=== PATIENT | male | born 1990 | race Caucasian/White ===

== ENCOUNTER → 2018-05-18 11:15 | Outpatient (CLI) | payer OTHER, SELFPAY ==
[2018-05-18 12:14] LABS: TSH w/ Reflex to FT4 5.22 uIU/mL (0.47-4.68)
[2018-05-18 12:55] LABS: Free T4, Direct Thyroxine 1.22 ng/dL (0.78-2.19)
[2018-05-18 12:59] LABS: HIV 1 and 2 Antibody NEGATIVE (NEGATIVE)
[2018-05-21 08:56] LABS: Hepatitis A Antibody IgM NONREACTIVE (NONREACTIVE); Hepatitis Acute Panel Interp 0.01 (NONREACTIVE); Hepatitis B Core Antibody IgM NONREACTIVE (NONREACTIVE); Hepatitis B Surface Antigen NONREACTIVE (NONREACTIVE); Hepatitis C Antibody NONREACTIVE
[2018-05-21 20:10] LABS: HSV 1 IgM Screen Negative (Negative); HSV 2 IgM Screen Negative (Negative)
== END ==
PROVIDERS: PCP Family Medicine; Visit Provider Family Medicine
DX: E05.90 Thyrotoxicosis, unspecified without thyrotoxic crisis or storm (principal); Z11.3 Encounter for screening for infections with a predominantly sexual mode of transmission
CPT/HCPCS: 36415; 80074; 84439; 84443; 86694; 86703

== ENCOUNTER 2021-09-02 00:44 | Emergency (ER) | payer OTHER, MEDICAID, SELFPAY ==
--- NOTE | 2021-09-02 00:52 | DI.RAD.S_ITS ---
PROCEDURE: XR HIP W PEL IF DONE LT 2V INDICATIONS: fall TECHNIQUE: AP pelvis with lateral view(s) of the left hip(s). COMPARISON: None. FINDINGS: Bones: No fractures or dislocations. Pelvic ring appears intact. No suspicious bony lesions. Soft tissues: The visualized bowel gas pattern is normal. No suspicious soft tissue calcifications. IMPRESSION: No acute fracture. No osseous lesion. If symptoms and/or clinical suspicion for pathology persist, further assessment with repeat, or advanced imaging (e.g., CT, MRI, or bone scan) may be helpful for further assessment. Dictated by: Emery Frazier M.D. on 09/02/2021 at 1:11 Approved by: Emery Frazier M.D. on 09/02/2021 at 1:11
[2021-09-02 00:53] VITALS: BP 168/95; PULSE 72; RESP 18; TEMP 36.9; O2SAT 100
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
--- NOTE | 2021-09-02 01:21 | DI.CT.S_ITS ---
PROCEDURE: CT PEL WO CON INDICATIONS: Left hip pain TECHNIQUE: Noncontrast 3 mm axial sections acquired through the bony pelvis, with coronal and sagittal reformatting. COMPARISON: [facility], CR, XR HIP W PEL IF DONE LT 2V, 09/02/2021, 0:43. FINDINGS: Image quality: Excellent. Bones: No fracture or osseous lesion. Soft tissues: Visualized bowel loops and vasculature are normal in caliber. No free fluid. No fluid collections. IMPRESSION: No fracture. Dictated by: Emery Frazier M.D. on 09/02/2021 at 1:45 Approved by: Emery Frazier M.D. on 09/02/2021 at 1:46
[2021-09-02] MEDS: KETOROLAC 30 MG/ML VIAL IM (01:28)
[2021-09-02 02:04] VITALS: BP 154/91; PULSE 68; RESP 18; O2SAT 100
== END 2021-09-02 02:08 | disposition home or self-care (01) ==
PROVIDERS: Emergency Provider Emergency Medicine; PCP Family Medicine
DX: S70.02XA Contusion of left hip, initial encounter (principal); F17.200 Nicotine dependence, unspecified, uncomplicated; Y04.8XXA Assault by other bodily force, initial encounter
CPT/HCPCS: 72192; 73502; 96372; 99283; 99284; J1885

== ENCOUNTER 2023-07-02 12:57 | Emergency (ER) | payer OTHER, MEDICAID, SELFPAY ==
[2023-07-02] VITALS (45 sets, daily range): BP systolic 147–174; BP diastolic 75–108; PULSE 76–90; RESP 12–34; TEMP 36.4; O2SAT 95–100; BMI 37.4
--- NOTE | 2023-07-02 13:09 | ED_ITS ---
HPI - Fall <Mateo Hernandez MD - Last Filed: 07/12/23 10:23> General Chief Complaint: Trauma Stated Complaint: fall 5 days ago/weak knees Time Seen by Provider: 07/02/23 13:05 History of Present Illness HPI Narrative: Patient brought in by ambulance from home. Ground level fall 5 days ago while taking a shower he lost his balance and hit the edge of the shower with his head and lower back. Has had nausea and vomiting since then. Did have loss of consciousness. Patient is not on any blood thinners. Patient has felt very weak since then. Blood sugar 90. Today his legs were very weak and he fell again. No new injury. Patient is awake alert oriented x4. Moving all 4 extremities. Denies any limb injury. Related Data Home Medications Medication Instructions Recorded Confirmed No Known Home Medications 07/02/23 07/02/23 Allergies Allergy/AdvReac Type Severity Reaction Status Date / Time No Known Drug Allergies Allergy Verified 07/02/23 15:47 Review of Systems <Mateo Hernandez MD - Last Filed: 07/12/23 10:23> Review of Systems Narrative: GENERAL: negative chills, positive fatigue, malaise, negative fever, sweats. HEENT: negative sinus pain, ear pain, sore throat RESPIRATORY: negative dyspnea, cough CARDIOVASCULAR: negative chest pain, palpitations GASTROINTESTINAL: Positive nausea, vomiting, negative abdominal pain : negative dysuria, frequency, hematuria MUSCULOSKELETAL: Positive muscle or bony pain SKIN: negative rash, skin lesions NEUROLOGIC: negative weakness, numbness ROS Unobtainable: All systems reviewed & are unremarkable except as noted in HPI and below Patient History <Mateo Hernandez MD - Last Filed: 07/12/23 10:23> Family History Mother Rheumatoid arthritis Social History Smoking Status: Current every day smoker Smoking Status: Current every day smoker Exam <Mateo Hernandez MD - Last Filed: 07/12/23 10:23> Narrative Exam Narrative: GENERAL: in no distress, not toxic not dyspneic HEAD: Normocephalic. Atraumatic. Nontender scalp and skull. EYES: Pupils equal round ENT: Mucous membranes moist. NECK: Trachea midline. No midline tenderness or step-off the cervical thoracic or lumbar spine. CARDIOVASCULAR: Regular rate and rhythm RESPIRATORY: Clear to auscultation. Breath sounds equal bilaterally. No wheezes, rales, or rhonchi. GASTROINTESTINAL: Abdomen soft, non-tender EXTREMITIES: No gross deformities. Nontender bilateral shoulders elbows wrists pelvis hips knees and ankles BACK: No flank tenderness. NEURO: AOx4. 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 Patient able to move himself from EMS bed to his bed without assistance or difficulty SKIN: Warm and dry PSYCH: Not anxious, is cooperative Initial Vital Signs Initial Vital Signs: Vital Signs Pulse Rate 86 07/02/23 13:00 Pulse Oximetry 98 07/02/23 13:00 <Roseanna Robb MD - Last Filed: 07/03/23 05:24> Initial Vital Signs Initial Vital Signs: Vital Signs Pulse Rate 86 07/02/23 13:00 Pulse Oximetry 98 07/02/23 13:00 Course <Mateo Hernandez MD - Last Filed: 07/12/23 10:23> Orders Ordered: Discontinued Medications Calcium Carbonate (Calcium Carbonate 500 Mg Tab) 1,000 mg PO Q6HR CHRIS Last Admin: 07/03/23 00:16 Dose: 1,000 mg Documented By: Admin: 07/02/23 21:37 Dose: 1,000 mg Documented By: RISHABH Dextrose (Dextrose 50 % In Water 25 Gm/50 Ml Syringe) 25 gm IV NOW ONE Stop: 07/02/23 15:18 Last Admin: 07/02/23 15:26 Dose: 25 gm Documented By: MARY Dextrose (Dextrose 50 % In Water 25 Gm/50 Ml Syringe) 25 gm IV NOW ONE Stop: 07/03/23 02:08 Last Admin: 07/03/23 02:22 Dose: 25 gm Documented By: JEB Dextrose (Dextrose 50 % In Water 25 Gm/50 Ml Syringe) 25 gm IV NOW ONE Stop: 07/03/23 04:10 Last Admin: 07/03/23 04:13 Dose: 25 gm Documented By: JEB Sodium Chloride (Normal Saline 0.9%) 1,000 mls @ 1,000 mls/hr IV BOLUS ONE Stop: 07/02/23 14:05 Last Infusion: 07/02/23 14:54 Dose: Infused Documented By: Admin: 07/02/23 13:35 Dose: 1,000 mls/hr Documented By: KARTHIKEYAN Sodium Chloride (Normal Saline 0.9%) 1,000 mls @ 1,000 mls/hr IV BOLUS ONE Stop: 07/02/23 14:59 Last Infusion: 07/02/23 15:32 Dose: Infused Documented By: Admin: 07/02/23 14:26 Dose: 1,000 mls/hr Documented By: MARY Calcium Gluconate 4.65 meq/ (Sodium Chloride) 60 mls @ 180 mls/hr IV NOW ONE Stop: 07/02/23 14:21 Last Infusion: 07/02/23 14:54 Dose: Infused Documented By: Admin: 07/02/23 14:25 Dose: 180 mls/hr Documented By: MARY Sodium Chloride (Normal Saline 0.9%) 1,000 mls @ 125 mls/hr IV CONT CHRIS Last Infusion: 07/02/23 21:26 Dose: Infused Documented By: Infusion: 07/02/23 19:23 Dose: 75 mls/hr Documented By: Admin: 07/02/23 15:28 Dose: 125 mls/hr Documented By: MARY Calcium Gluconate 9.3 meq/ (Sodium Chloride) 70 mls @ 140 mls/hr IV NOW ONE Stop: 07/02/23 20:38 Last Admin: 07/02/23 21:01 Dose: Not Given Documented By: CAROLINA Calcium Gluconate 4.65 meq/ (Sodium Chloride) 60 mls @ 180 mls/hr IV NOW ONE Stop: 07/02/23 21:20 Last Admin: 07/02/23 21:09 Dose: Not Given Documented By: CAROLINA Calcium Gluconate 9.3 meq/ (Sodium Chloride) 120 mls @ 140 mls/hr IV NOW ONE Stop: 07/02/23 21:53 Last Infusion: 07/02/23 22:40 Dose: Infused Documented By: Admin: 07/02/23 21:10 Dose: 140 mls/hr Documented By: RISHABH Sodium Chloride (Normal Saline 0.9%) 1,000 mls @ 125 mls/hr IV CONT CHRIS Last Admin: 07/03/23 02:22 Dose: 125 mls/hr Documented By: JEB Calcium Gluconate 4.65 meq/ (Sodium Chloride) 60 mls @ 180 mls/hr IV NOW ONE Stop: 07/03/23 02:26 Last Infusion: 07/03/23 02:46 Dose: Infused Documented By: Admin: 07/03/23 02:22 Dose: 180 mls/hr Documented By: JEB Insulin Human Regular (Insulin Regular 100 Unit/Ml 3 Ml Vial) 5 unit IV NOW ONE Stop: 07/02/23 15:18 Last Admin: 07/02/23 15:26 Dose: 5 unit Documented By: MARY Co-signed By: RAIMUNDO Insulin Human Regular (Insulin Regular 100 Unit/Ml 3 Ml Vial) 10 unit IV NOW ONE Stop: 07/03/23 02:08 Last Admin: 07/03/23 02:20 Dose: 10 unit Documented By: JEB Co-signed By: CLARICE Lidocaine HCl (Lidocaine 2% (Glydo) 6 Ml Gel) 6 ml TOP NOW ONE Stop: 07/02/23 14:03 Last Admin: 07/02/23 14:31 Dose: 6 ml Documented By: MARY Lorazepam (Lorazepam 0.5 Mg Tablet) 1 mg PO NOW ONE Stop: 07/02/23 21:15 Last Admin: 07/02/23 21:29 Dose: 1 mg Documented By: RISHABH Morphine Sulfate (Morphine 4 Mg/Ml Inj) 4 mg IV NOW ONE Stop: 07/02/23 17:07 Last Admin: 07/02/23 17:21 Dose: 4 mg Documented By: MARY Ondansetron HCl (Ondansetron 4 Mg/2 Ml Inj) 4 mg IV NOW ONE Stop: 07/02/23 13:07 Last Admin: 07/02/23 13:18 Dose: 4 mg Documented By: KARTHIKEYAN Vital Signs Vital signs: Vital Signs - 8 hr 07/02/23 21:30 07/02/23 21:30 07/02/23 21:43 Temperature Pulse Rate 80 Respiratory Rate 25 H Blood Pressure 152/81 H 157/97 H Pulse Oximetry 99 Oxygen Delivery Method 07/02/23 21:43 07/02/23 22:00 07/02/23 22:30 Temperature Pulse Rate 82 77 79 Respiratory Rate 24 26 H Blood Pressure Pulse Oximetry 98 99 97 Oxygen Delivery Method 07/02/23 23:00 07/02/23 23:30 07/03/23 00:00 Temperature Pulse Rate 80 78 79 Respiratory Rate 23 21 17 Blood Pressure Pulse Oximetry 95 96 97 Oxygen Delivery Method 07/03/23 00:30 07/03/23 01:00 07/03/23 01:25 Temperature Pulse Rate 78 80 79 Respiratory Rate 22 21 21 Blood Pressure Pulse Oximetry 91 90 L 97 Oxygen Delivery Method 07/03/23 01:25 07/03/23 01:30 07/03/23 01:30 Temperature Pulse Rate 83 Respiratory Rate 24 Blood Pressure 133/83 127/63 Pulse Oximetry 96 Oxygen Delivery Method 07/03/23 02:00 07/03/23 02:00 07/03/23 02:30 Temperature 97.7 F Pulse Rate 79 80 Respiratory Rate 24 24 Blood Pressure 134/73 Pulse Oximetry 96 94 Oxygen Delivery Method Room Air Room Air 07/03/23 02:30 07/03/23 03:00 07/03/23 03:00 Temperature Pulse Rate 80 Respiratory Rate 21 Blood Pressure 142/70 H 140/73 Pulse Oximetry 96 Oxygen Delivery Method 07/03/23 03:30 07/03/23 03:30 07/03/23 04:00 Temperature Pulse Rate 80 Respiratory Rate 24 Blood Pressure 148/77 H 152/77 H Pulse Oximetry 97 Oxygen Delivery Method 07/03/23 04:00 07/03/23 04:30 07/03/23 04:30 Temperature Pulse Rate 87 75 Respiratory Rate 25 H 21 Blood Pressure 152/77 H Pulse Oximetry 96 96 Oxygen Delivery Method 07/03/23 05:00 Temperature Pulse Rate 82 Respiratory Rate 21 Blood Pressure Pulse Oximetry 96 Oxygen Delivery Method <Roseanna Robb MD - Last Filed: 07/03/23 05:24> Orders Ordered: Discontinued Medications Calcium Carbonate (Calcium Carbonate 500 Mg Tab) 1,000 mg PO Q6HR CHRIS Last Admin: 07/03/23 00:16 Dose: 1,000 mg Documented By: Admin: 07/02/23 21:37 Dose: 1,000 mg Documented By: RISHABH Dextrose (Dextrose 50 % In Water 25 Gm/50 Ml Syringe) 25 gm IV NOW ONE Stop: 07/02/23 15:18 Last Admin: 07/02/23 15:26 Dose: 25 gm Documented By: MARY Dextrose (Dextrose 50 % In Water 25 Gm/50 Ml Syringe) 25 gm IV NOW ONE Stop: 07/03/23 02:08 Last Admin: 07/03/23 02:22 Dose: 25 gm Documented By: JEB Dextrose (Dextrose 50 % In Water 25 Gm/50 Ml Syringe) 25 gm IV NOW ONE Stop: 07/03/23 04:10 Last Admin: 07/03/23 04:13 Dose: 25 gm Documented By: JEB Sodium Chloride (Normal Saline 0.9%) 1,000 mls @ 1,000 mls/hr IV BOLUS ONE Stop: 07/02/23 14:05 Last Infusion: 07/02/23 14:54 Dose: Infused Documented By: Admin: 07/02/23 13:35 Dose: 1,000 mls/hr Documented By: KARTHIKEYAN Sodium Chloride (Normal Saline 0.9%) 1,000 mls @ 1,000 mls/hr IV BOLUS ONE Stop: 07/02/23 14:59 Last Infusion: 07/02/23 15:32 Dose: Infused Documented By: Admin: 07/02/23 14:26 Dose: 1,000 mls/hr Documented By: MARY Calcium Gluconate 4.65 meq/ (Sodium Chloride) 60 mls @ 180 mls/hr IV NOW ONE Stop: 07/02/23 14:21 Last Infusion: 07/02/23 14:54 Dose: Infused Documented By: Admin: 07/02/23 14:25 Dose: 180 mls/hr Documented By: MARY Sodium Chloride (Normal Saline 0.9%) 1,000 mls @ 125 mls/hr IV CONT CHRIS Last Infusion: 07/02/23 21:26 Dose: Infused Documented By: Infusion: 07/02/23 19:23 Dose: 75 mls/hr Documented By: Admin: 07/02/23 15:28 Dose: 125 mls/hr Documented By: MARY Calcium Gluconate 9.3 meq/ (Sodium Chloride) 70 mls @ 140 mls/hr IV NOW ONE Stop: 07/02/23 20:38 Last Admin: 07/02/23 21:01 Dose: Not Given Documented By: CAROLINA Calcium Gluconate 4.65 meq/ (Sodium Chloride) 60 mls @ 180 mls/hr IV NOW ONE Stop: 07/02/23 21:20 Last Admin: 07/02/23 21:09 Dose: Not Given Documented By: CAROLINA Calcium Gluconate 9.3 meq/ (Sodium Chloride) 120 mls @ 140 mls/hr IV NOW ONE Stop: 07/02/23 21:53 Last Infusion: 07/02/23 22:40 Dose: Infused Documented By: Admin: 07/02/23 21:10 Dose: 140 mls/hr Documented By: RISHABH Sodium Chloride (Normal Saline 0.9%) 1,000 mls @ 125 mls/hr IV CONT CHRIS Last Admin: 07/03/23 02:22 Dose: 125 mls/hr Documented By: JEB Calcium Gluconate 4.65 meq/ (Sodium Chloride) 60 mls @ 180 mls/hr IV NOW ONE Stop: 07/03/23 02:26 Last Infusion: 07/03/23 02:46 Dose: Infused Documented By: Admin: 07/03/23 02:22 Dose: 180 mls/hr Documented By: JEB Insulin Human Regular (Insulin Regular 100 Unit/Ml 3 Ml Vial) 5 unit IV NOW ONE Stop: 07/02/23 15:18 Last Admin: 07/02/23 15:26 Dose: 5 unit Documented By: MARY Co-signed By: RAIMUNDO Insulin Human Regular (Insulin Regular 100 Unit/Ml 3 Ml Vial) 10 unit IV NOW ONE Stop: 07/03/23 02:08 Last Admin: 07/03/23 02:20 Dose: 10 unit Documented By: JEB Co-signed By: CLARICE Lidocaine HCl (Lidocaine 2% (Glydo) 6 Ml Gel) 6 ml TOP NOW ONE Stop: 07/02/23 14:03 Last Admin: 07/02/23 14:31 Dose: 6 ml Documented By: MARY Lorazepam (Lorazepam 0.5 Mg Tablet) 1 mg PO NOW ONE Stop: 07/02/23 21:15 Last Admin: 07/02/23 21:29 Dose: 1 mg Documented By: RISHABH Morphine Sulfate (Morphine 4 Mg/Ml Inj) 4 mg IV NOW ONE Stop: 07/02/23 17:07 Last Admin: 07/02/23 17:21 Dose: 4 mg Documented By: MARY Ondansetron HCl (Ondansetron 4 Mg/2 Ml Inj) 4 mg IV NOW ONE Stop: 07/02/23 13:07 Last Admin: 07/02/23 13:18 Dose: 4 mg Documented By: KARTHIKEYAN Vital Signs Vital signs: Vital Signs - 8 hr 07/02/23 21:30 07/02/23 21:30 07/02/23 21:43 Temperature Pulse Rate 80 Respiratory Rate 25 H Blood Pressure 152/81 H 157/97 H Pulse Oximetry 99 Oxygen Delivery Method 07/02/23 21:43 07/02/23 22:00 07/02/23 22:30 Temperature Pulse Rate 82 77 79 Respiratory Rate 24 26 H Blood Pressure Pulse Oximetry 98 99 97 Oxygen Delivery Method 07/02/23 23:00 07/02/23 23:30 07/03/23 00:00 Temperature Pulse Rate 80 78 79 Respiratory Rate 23 21 17 Blood Pressure Pulse Oximetry 95 96 97 Oxygen Delivery Method 07/03/23 00:30 07/03/23 01:00 07/03/23 01:25 Temperature Pulse Rate 78 80 79 Respiratory Rate 22 21 21 Blood Pressure Pulse Oximetry 91 90 L 97 Oxygen Delivery Method 07/03/23 01:25 07/03/23 01:30 07/03/23 01:30 Temperature Pulse Rate 83 Respiratory Rate 24 Blood Pressure 133/83 127/63 Pulse Oximetry 96 Oxygen Delivery Method 07/03/23 02:00 07/03/23 02:00 07/03/23 02:30 Temperature 97.7 F Pulse Rate 79 80 Respiratory Rate 24 24 Blood Pressure 134/73 Pulse Oximetry 96 94 Oxygen Delivery Method Room Air Room Air 07/03/23 02:30 07/03/23 03:00 07/03/23 03:00 Temperature Pulse Rate 80 Respiratory Rate 21 Blood Pressure 142/70 H 140/73 Pulse Oximetry 96 Oxygen Delivery Method 07/03/23 03:30 07/03/23 03:30 07/03/23 04:00 Temperature Pulse Rate 80 Respiratory Rate 24 Blood Pressure 148/77 H 152/77 H Pulse Oximetry 97 Oxygen Delivery Method 07/03/23 04:00 07/03/23 04:30 07/03/23 04:30 Temperature Pulse Rate 87 75 Respiratory Rate 25 H 21 Blood Pressure 152/77 H Pulse Oximetry 96 96 Oxygen Delivery Method 07/03/23 05:00 Temperature Pulse Rate 82 Respiratory Rate 21 Blood Pressure Pulse Oximetry 96 Oxygen Delivery Method MDM - Fall <Mateo Hernandez MD - Last Filed: 07/12/23 10:23> Lab Data 07/02/23 13:16 07/03/23 04:05 Labs: Lab Results 07/02/23 07/02/23 07/02/23 Range/Units 13:16 13:55 14:50 WBC 9.3 (4.5-11.0) X10^3/uL RBC 4.30 L (4.5-5.9) X10^6/uL Hgb 13.4 L (13.5-17.5) g/dL Hct 37.6 L (41-53) % MCV 87.5 (80-100) fL MCH 31.1 (26-34) PG MCHC 35.6 (30-36) % RDW 13.0 (11.6-14.8) % Plt Count 241 (150-400) X10^3/uL Neut % (Auto) 86.3 H (50-75) % Lymph % (Auto) 5.1 L (25-40) % [place] % (Auto) 8.0 (3-14) % Eos % (Auto) 0.2 L (2-4) % Baso % (Auto) 0.4 (0-2) % Neut # (Auto) 8000 H (4942-0944) /uL Lymph # (Auto) 500 L (0500-3928) /uL [place] # (Auto) 700 (0-900) /uL Eos # (Auto) 0 (0-450) /uL Baso # (Auto) 0 (0-100) /uL ABG Sample Site ABG pH (7.35-7.45) ABG pCO2 (35-45) mmHg ABG pO2 (80-100) mmHg ABG HCO3 (23-27) mmol/L ABG Total CO2 (23-27) mmol/L ABG O2 Saturation (95-100) % ABG Base Excess (-2-3) mmol/L FiO2 Sodium 106 L* (137-145) mmol/L Potassium 7.4 H* (3.4-5.1) mmol/L Chloride 68 L* (98-107) mmol/L Carbon Dioxide 14 L (22-32) mmol/L BUN 152 H* (9-20) mg/dL Creatinine 19.29 H* (0.66-1.25) mg/dL Estimated GFR 3 L (>60) mL/min BUN/Creatinine Ratio 7.9 (6-22) Glucose 84 (70-100) mg/dL Calcium 4.8 L* (8.4-10.2) mg/dL Phosphorus (2.5-4.5) mg/dL Magnesium (1.6-2.3) mg/dL Total Bilirubin 0.7 (0.2-1.3) mg/dL AST 372 H (17-59) IU/L ALT 440 H (<50) IU/L Alkaline Phosphatase 47 (38-126) U/L Total Creatine Kinase 066467 H (55-170) U/L NT-Pro-B Natriuret Pep Total Protein 6.7 (6.3-8.2) g/dL Albumin 4.0 (3.5-5.0) g/dL Globulin 2.7 (1.7-4.1) g/dL Albumin/Globulin Ratio 1.5 (1.0-2.8) Lipase 365 H (23-300) U/L TSH (0.47-4.68) uIU/mL Urine Color Yellow Urine Appearance Cloudy Urine pH 5.5 (4.5-8.0) Ur Specific Randle 1.025 (1.000-1.035) Urine Protein 3+ H (Negative) Urine Glucose (UA) Trace H (Negative) g/dL Urine Ketones Trace H (NEGATIVE) Urine Occult Blood 3+ H (Negative) Urine Nitrate Negative (Negative) Urine Bilirubin 1+ H (NEGATIVE) Ur Bilirubin Confirm Cancelled Urine Urobilinogen 0.2 (0.2) E.U./dL Ur Leukocyte Esterase Negative (NEGATIVE) Urine RBC 1-5/hpf (0-5/HPF) Urine WBC 1-5/hpf (0-5/HPF) Ur Squamous Epith Cells None seen (0-5/HPF) Ur Renal Epithelial Cell >20/hpf H (0-1/HPF) Urine Bacteria None seen (None) Ur Culture Indicated? Cult not indicated Micro UA Comment Salicylates < 1.0 (<20) mg/dL U Opiates 300ng/mL cut Negative (Negative) Ur Oxycodone Screen Negative (Negative) Urine Methadone Screen Negative (Negative) Acetaminophen < 10 (10-30) ug/mL Ur Barbiturates Screen Negative (Negative) U Tricyclic Antidepress Negative (Negative) Ur Phencyclidine Scrn Negative (Negative) Ur Amphetamines Screen Negative (Negative) U Methamphetamines Scrn Negative (Negative) Ur MDMA Scrn (Ecstasy) Negative (Negative) U Benzodiazepines Scrn Negative (Negative) Urine Cocaine Screen Negative (Negative) U Marijuana (THC) Screen Negative (Negative) Urine Specific Randle (Normal) Ethyl Alcohol < 10 ( - 10) mg/dL Ur Creatinine (Normal) Chlamy pneumoniae PCR Not detected (Not Detect) Adenovirus (PCR) Not detected (Not Detect) B.parapertussis DNA PCR Not detected (Not Detecte) Coronavirus OC43 (PCR) Not detected (Not Detect) Coronavirus HKU1 (PCR) Not detected (Not Detect) Coronavirus 229E (PCR) Not detected (Not Detect) SARS-CoV-2 (PCR) Not detected (Not Detecte) Coronavirus NL63 (PCR) Not detected (Not Detect) Human Metapneumovir PCR Not detected (Not Detect) Influenza Type A (PCR) Not detected (Not Detect) Influenza Type B (PCR) Not detected (Not Detect) M. pneumoniae (PCR) Not detected (Not Detect) Parainfluenza 1 (PCR) Not detected (Not Detect) Parainfluenza 2 (PCR) Not detected (Not Detect) Parainfluenza 3 (PCR) Not detected (Not Detect) Parainfluenza 4 (PCR) Not detected (Not Detect) RSV (PCR) Not detected (Not Detect) Entero/Rhino (PCR) Not detected (Not Detect) 07/02/23 07/02/23 07/02/23 Range/Units 14:50 16:15 19:20 WBC (4.5-11.0) X10^3/uL RBC (4.5-5.9) X10^6/uL Hgb (13.5-17.5) g/dL Hct (41-53) % MCV (80-100) fL MCH (26-34) PG MCHC (30-36) % RDW (11.6-14.8) % Plt Count (150-400) X10^3/uL Neut % (Auto) (50-75) % Lymph % (Auto) (25-40) % [place] % (Auto) (3-14) % Eos % (Auto) (2-4) % Baso % (Auto) (0-2) % Neut # (Auto) (8029-1220) /uL Lymph # (Auto) (6635-7368) /uL Tr[place]ble # (Auto) (0-900) /uL Eos # (Auto) (0-450) /uL Baso # (Auto) (0-100) /uL ABG Sample Site ABG pH (7.35-7.45) ABG pCO2 (35-45) mmHg ABG pO2 (80-100) mmHg ABG HCO3 (23-27) mmol/L ABG Total CO2 (23-27) mmol/L ABG O2 Saturation (95-100) % ABG Base Excess (-2-3) mmol/L FiO2 Sodium 110 L* 115 L* (137-145) mmol/L Potassium 6.6 H* 5.5 H (3.4-5.1) mmol/L Chloride 74 L* 85 L (98-107) mmol/L Carbon Dioxide 14 L 11 L (22-32) mmol/L BUN 151 H* 133 H* (9-20) mg/dL Creatinine 18.85 H* 15.65 H* (0.66-1.25) mg/dL Estimated GFR 3 L 4 L (>60) mL/min BUN/Creatinine Ratio 8.0 8.5 (6-22) Glucose 72 69 L (70-100) mg/dL Calcium 4.9 L* 3.8 L* (8.4-10.2) mg/dL Phosphorus 11.2 H* (2.5-4.5) mg/dL Magnesium 2.7 H (1.6-2.3) mg/dL Total Bilirubin 0.6 0.5 (0.2-1.3) mg/dL AST 321 H 238 H (17-59) IU/L ALT 418 H 335 H (<50) IU/L Alkaline Phosphatase 42 35 L (38-126) U/L Total Creatine Kinase (55-170) U/L NT-Pro-B Natriuret Pep Cancelled Total Protein 6.3 5.1 L (6.3-8.2) g/dL Albumin 3.6 2.7 L (3.5-5.0) g/dL Globulin 2.7 2.4 (1.7-4.1) g/dL Albumin/Globulin Ratio 1.3 1.1 (1.0-2.8) Lipase (23-300) U/L TSH 1.94 (0.47-4.68) uIU/mL Urine Color Urine Appearance Urine pH Normal (4.5-8.0) Ur Specific Randle (1.000-1.035) Urine Protein (Negative) Urine Glucose (UA) (Negative) g/dL Urine Ketones (NEGATIVE) Urine Occult Blood (Negative) Urine Nitrate (Negative) Urine Bilirubin (NEGATIVE) Ur Bilirubin Confirm Urine Urobilinogen (0.2) E.U./dL Ur Leukocyte Esterase (NEGATIVE) Urine RBC (0-5/HPF) Urine WBC (0-5/HPF) Ur Squamous Epith Cells (0-5/HPF) Ur Renal Epithelial Cell (0-1/HPF) Urine Bacteria (None) Ur Culture Indicated? Micro UA Comment Salicylates (<20) mg/dL U Opiates 300ng/mL cut (Negative) Ur Oxycodone Screen (Negative) Urine Methadone Screen (Negative) Acetaminophen (10-30) ug/mL Ur Barbiturates Screen (Negative) U Tricyclic Antidepress (Negative) Ur Phencyclidine Scrn (Negative) Ur Amphetamines Screen (Negative) U Methamphetamines Scrn (Negative) Ur MDMA Scrn (Ecstasy) (Negative) U Benzodiazepines Scrn (Negative) Urine Cocaine Screen (Negative) U Marijuana (THC) Screen (Negative) Urine Specific Randle Normal (Normal) Ethyl Alcohol ( - 10) mg/dL Ur Creatinine Normal (Normal) Chlamy pneumoniae PCR (Not Detect) Adenovirus (PCR) (Not Detect) B.parapertussis DNA PCR (Not Detecte) Coronavirus OC43 (PCR) (Not Detect) Coronavirus HKU1 (PCR) (Not Detect) Coronavirus 229E (PCR) (Not Detect) SARS-CoV-2 (PCR) (Not Detecte) Coronavirus NL63 (PCR) (Not Detect) Human Metapneumovir PCR (Not Detect) Influenza Type A (PCR) (Not Detect) Influenza Type B (PCR) (Not Detect) M. pneumoniae (PCR) (Not Detect) Parainfluenza 1 (PCR) (Not Detect) Parainfluenza 2 (PCR) (Not Detect) Parainfluenza 3 (PCR) (Not Detect) Parainfluenza 4 (PCR) (Not Detect) RSV (PCR) (Not Detect) Entero/Rhino (PCR) (Not Detect) 12/31/23 01/01/24 01/01/24 Range/Units 21:18 00:08 03:55 WBC (4.5-11.0) X10^3/uL RBC (4.5-5.9) X10^6/uL Hgb (13.5-17.5) g/dL Hct (41-53) % MCV (80-100) fL MCH (26-34) PG MCHC (30-36) % RDW (11.6-14.8) % Plt Count (150-400) X10^3/uL Neut % (Auto) (50-75) % Lymph % (Auto) (25-40) % [place] % (Auto) (3-14) % Eos % (Auto) (2-4) % Baso % (Auto) (0-2) % Neut # (Auto) (2719-7472) /uL Lymph # (Auto) (1720-6234) /uL [place] # (Auto) (0-900) /uL Eos # (Auto) (0-450) /uL Baso # (Auto) (0-100) /uL ABG Sample Site Left radial ABG pH 7.35 (7.35-7.45) ABG pCO2 24.2 L* (35-45) mmHg ABG pO2 78 L (80-100) mmHg ABG HCO3 13 L (23-27) mmol/L ABG Total CO2 14 L (23-27) mmol/L ABG O2 Saturation 95 (95-100) % ABG Base Excess -12.0 L (-2-3) mmol/L FiO2 21 Sodium Cancelled 109 L* (137-145) mmol/L Potassium Cancelled 6.5 H* (3.4-5.1) mmol/L Chloride Cancelled 74 L* (98-107) mmol/L Carbon Dioxide Cancelled 13 L (22-32) mmol/L BUN Cancelled 149 H* (9-20) mg/dL Creatinine Cancelled 17.79 H* (0.66-1.25) mg/dL Estimated GFR Cancelled 3 L (>60) mL/min BUN/Creatinine Ratio Cancelled 8.4 (6-22) Glucose Cancelled 99 (70-100) mg/dL Calcium Cancelled 5.2 L* (8.4-10.2) mg/dL Phosphorus (2.5-4.5) mg/dL Magnesium (1.6-2.3) mg/dL Total Bilirubin Cancelled 0.6 (0.2-1.3) mg/dL AST Cancelled 232 H (17-59) IU/L ALT Cancelled 371 H (<50) IU/L Alkaline Phosphatase Cancelled 43 (38-126) U/L Total Creatine Kinase (55-170) U/L NT-Pro-B Natriuret Pep Total Protein Cancelled 6.1 L (6.3-8.2) g/dL Albumin Cancelled 3.5 (3.5-5.0) g/dL Globulin Cancelled 2.6 (1.7-4.1) g/dL Albumin/Globulin Ratio Cancelled 1.3 (1.0-2.8) Lipase (23-300) U/L TSH (0.47-4.68) uIU/mL Urine Color Urine Appearance Urine pH (4.5-8.0) Ur Specific Randle (1.000-1.035) Urine Protein (Negative) Urine Glucose (UA) (Negative) g/dL Urine Ketones (NEGATIVE) Urine Occult Blood (Negative) Urine Nitrate (Negative) Urine Bilirubin (NEGATIVE) Ur Bilirubin Confirm Urine Urobilinogen (0.2) E.U./dL Ur Leukocyte Esterase (NEGATIVE) Urine RBC (0-5/HPF) Urine WBC (0-5/HPF) Ur Squamous Epith Cells (0-5/HPF) Ur Renal Epithelial Cell (0-1/HPF) Urine Bacteria (None) Ur Culture Indicated? Micro UA Comment Salicylates (<20) mg/dL U Opiates 300ng/mL cut (Negative) Ur Oxycodone Screen (Negative) Urine Methadone Screen (Negative) Acetaminophen (10-30) ug/mL Ur Barbiturates Screen (Negative) U Tricyclic Antidepress (Negative) Ur Phencyclidine Scrn (Negative) Ur Amphetamines Screen (Negative) U Methamphetamines Scrn (Negative) Ur MDMA Scrn (Ecstasy) (Negative) U Benzodiazepines Scrn (Negative) Urine Cocaine Screen (Negative) U Marijuana (THC) Screen (Negative) Urine Specific Randle (Normal) Ethyl Alcohol ( - 10) mg/dL Ur Creatinine (Normal) Chlamy pneumoniae PCR (Not Detect) Adenovirus (PCR) (Not Detect) B.parapertussis DNA PCR (Not Detecte) Coronavirus OC43 (PCR) (Not Detect) Coronavirus HKU1 (PCR) (Not Detect) Coronavirus 229E (PCR) (Not Detect) SARS-CoV-2 (PCR) (Not Detecte) Coronavirus NL63 (PCR) (Not Detect) Human Metapneumovir PCR (Not Detect) Influenza Type A (PCR) (Not Detect) Influenza Type B (PCR) (Not Detect) M. pneumoniae (PCR) (Not Detect) Parainfluenza 1 (PCR) (Not Detect) Parainfluenza 2 (PCR) (Not Detect) Parainfluenza 3 (PCR) (Not Detect) Parainfluenza 4 (PCR) (Not Detect) RSV (PCR) (Not Detect) Entero/Rhino (PCR) (Not Detect) 07/03/23 Range/Units 04:05 WBC (4.5-11.0) X10^3/uL RBC (4.5-5.9) X10^6/uL Hgb (13.5-17.5) g/dL Hct (41-53) % MCV (80-100) fL MCH (26-34) PG MCHC (30-36) % RDW (11.6-14.8) % Plt Count (150-400) X10^3/uL Neut % (Auto) (50-75) % Lymph % (Auto) (25-40) % [place] % (Auto) (3-14) % Eos % (Auto) (2-4) % Baso % (Auto) (0-2) % Neut # (Auto) (8951-8136) /uL Lymph # (Auto) (5210-2372) /uL [place] # (Auto) (0-900) /uL Eos # (Auto) (0-450) /uL Baso # (Auto) (0-100) /uL ABG Sample Site ABG pH (7.35-7.45) ABG pCO2 (35-45) mmHg ABG pO2 (80-100) mmHg ABG HCO3 (23-27) mmol/L ABG Total CO2 (23-27) mmol/L ABG O2 Saturation (95-100) % ABG Base Excess (-2-3) mmol/L FiO2 Sodium 113 L* (137-145) mmol/L Potassium 5.2 H D (3.4-5.1) mmol/L Chloride 76 L* (98-107) mmol/L Carbon Dioxide 14 L (22-32) mmol/L BUN 152 H* (9-20) mg/dL Creatinine 19.75 H* (0.66-1.25) mg/dL Estimated GFR 3 L (>60) mL/min BUN/Creatinine Ratio 7.7 (6-22) Glucose 45 L* (70-100) mg/dL Calcium 5.9 L* (8.4-10.2) mg/dL Phosphorus (2.5-4.5) mg/dL Magnesium (1.6-2.3) mg/dL Total Bilirubin 0.6 (0.2-1.3) mg/dL AST 206 H (17-59) IU/L ALT 374 H (<50) IU/L Alkaline Phosphatase 47 (38-126) U/L Total Creatine Kinase (55-170) U/L NT-Pro-B Natriuret Pep Total Protein 6.2 L (6.3-8.2) g/dL Albumin 3.6 (3.5-5.0) g/dL Globulin 2.6 (1.7-4.1) g/dL Albumin/Globulin Ratio 1.4 (1.0-2.8) Lipase (23-300) U/L TSH (0.47-4.68) uIU/mL Urine Color Urine Appearance Urine pH (4.5-8.0) Ur Specific Randle (1.000-1.035) Urine Protein (Negative) Urine Glucose (UA) (Negative) g/dL Urine Ketones (NEGATIVE) Urine Occult Blood (Negative) Urine Nitrate (Negative) Urine Bilirubin (NEGATIVE) Ur Bilirubin Confirm Urine Urobilinogen (0.2) E.U./dL Ur Leukocyte Esterase (NEGATIVE) Urine RBC (0-5/HPF) Urine WBC (0-5/HPF) Ur Squamous Epith Cells (0-5/HPF) Ur Renal Epithelial Cell (0-1/HPF) Urine Bacteria (None) Ur Culture Indicated? Micro UA Comment Salicylates (<20) mg/dL U Opiates 300ng/mL cut (Negative) Ur Oxycodone Screen (Negative) Urine Methadone Screen (Negative) Acetaminophen (10-30) ug/mL Ur Barbiturates Screen (Negative) U Tricyclic Antidepress (Negative) Ur Phencyclidine Scrn (Negative) Ur Amphetamines Screen (Negative) U Methamphetamines Scrn (Negative) Ur MDMA Scrn (Ecstasy) (Negative) U Benzodiazepines Scrn (Negative) Urine Cocaine Screen (Negative) U Marijuana (THC) Screen (Negative) Urine Specific Randle (Normal) Ethyl Alcohol ( - 10) mg/dL Ur Creatinine (Normal) Chlamy pneumoniae PCR (Not Detect) Adenovirus (PCR) (Not Detect) B.parapertussis DNA PCR (Not Detecte) Coronavirus OC43 (PCR) (Not Detect) Coronavirus HKU1 (PCR) (Not Detect) Coronavirus 229E (PCR) (Not Detect) SARS-CoV-2 (PCR) (Not Detecte) Coronavirus NL63 (PCR) (Not Detect) Human Metapneumovir PCR (Not Detect) Influenza Type A (PCR) (Not Detect) Influenza Type B (PCR) (Not Detect) M. pneumoniae (PCR) (Not Detect) Parainfluenza 1 (PCR) (Not Detect) Parainfluenza 2 (PCR) (Not Detect) Parainfluenza 3 (PCR) (Not Detect) Parainfluenza 4 (PCR) (Not Detect) RSV (PCR) (Not Detect) Entero/Rhino (PCR) (Not Detect) Point of Care Testing Glucose POC [address] scan - head: Radiologist's Impression: [place] [address] CT Scan Report Signed Patient: Jeanie Laboy MR#: [id number] : 1990 Acct:[id number] Age/Sex: 32 / M Date of Service: 07/02/23 Loc: ED Accession Number: [id number] Procedure: CT head/brain wo con Ordering Provider: Mateo Hernandez MD PROCEDURE: CT HEAD/BRAIN WO CON INDICATIONS: Trauma TECHNIQUE: Noncontrast 4.5 mm thick angled axial sections acquired from the foramen magnum to the vertex, with coronal and sagittal reformats. For radiation dose reduction, the following was used: automated exposure control, adjustment of mA and/or kV according to patient size. COMPARISON: [facility], CT, CT HEAD WITHOUT CONTRAST, 04/18/2021, 15:37. FINDINGS: Image quality: Diagnostic CSF spaces: Basal cisterns are patent. Lateral ventricles are symmetric. Volume: Generally maintained. Brain: No gross loss of west-white differentiation or acute intracranial hematoma. Basal ganglia nonspecific mineralization again seen. Craniofacial structures: No significant paranasal sinus opacification. No displaced fracture. IMPRESSION: No acute intracranial abnormality. Dictated by: Christiano Castro M.D. on 07/02/2023 at 13:45 Approved by: Christiano Castro M.D. on 07/02/2023 at 13:47 CT - cervical spine: Radiologist's Impression: [address] [address] [address] Scan Report Signed Patient: Jeanie Laboy MR#: [id number] : 1990 Acct:[id number] Age/Sex: 32 / M Date of Service: 07/02/23 Loc: ED Accession Number: [id number] Procedure: CT cervical spine wo con Ordering Provider: Mateo Hernandez MD PROCEDURE: CT CERVICAL SPINE WO CON INDICATIONS: Trauma TECHNIQUE: Noncontrast 3 mm thick sections acquired from the skull base to the T4 level. Sagittal and coronal reformats were then constructed. For radiation dose reduction, the following was used: automated exposure control, adjustment of mA and/or kV according to patient size. COMPARISON: [facility], CT, CT CERVICAL SPINE WO CON, 05/16/2015, 21:56. FINDINGS: Image quality: Diagnostic Bones: There is straightening of normal cervical lordosis. No traumatic subluxation. No acute vertebral body height loss. Soft tissues: No pathologic prevertebral soft tissue swelling. No apical pneumothorax. Chest abdomen pelvis findings are separately dictated. IMPRESSION: No displaced fracture or traumatic subluxation. If there is high concern for further derangement, consider MRI evaluation. Dictated by: Christiano Castro M.D. on 07/02/2023 at 13:48 Approved by: Christiano Castro M.D. on 07/02/2023 at 13:49 CT chest abdomen and pelvis: Radiologist's Impression: [address] [address] [address] Scan Report Signed Patient: Jeanie Laboy MR#: [id number] : 1990 Acct:[id number] Age/Sex: 32 / M Date of Service: 07/02/23 Loc: ED Accession Number: [id number] Procedure: CT chest abd pel w con Ordering Provider: Mateo Hernandez MD PROCEDURE: CT CHEST ABD PEL W CON INDICATIONS: Trauma TECHNIQUE: After the administration of intravenous contrast, 5 mm thick sections acquired from the lung apices to the symphysis. 2.5 mm thick coronal and sagittal reformats were acquired. Additional 7 mm thick coronal maximum intensity projection (MIP) reformats acquired through the lungs. Optional 10-minute delayed imaging may be performed from the kidneys to the bladder. For radiation dose reduction, the following was used: automated exposure control, adjustment of mA and/or kV according to patient size. COMPARISON: [facility], CT, CT PEL WO CON, 09/02/2021, 1:27. FINDINGS: Image quality: Diagnostic Lungs and pleura: Scattered areas of atelectasis, mucous plugging, and bronchial wall thickening. No dense consolidation. Mild scattered ground-glass opacities, for example in the superior segment of the right lower lobe, and posterior left upper lobe. No pneumothorax or hemothorax. Mediastinum, heart, and esophagus: No hiatal hernia. Borderline cardiomegaly. No hemopericardium. No mediastinal hematoma. No pathologic lymph nodes by size criteria. Incidentally noted duplicated SVC. Chest wall and thyroid: No actionable thyroid nodule identified. Chest wall is unremarkable Liver: Suspected focal fat adjacent to the falciform ligament. No discrete laceration or capsular hematoma Gallbladder and biliary system: Unremarkable, nondilated Pancreas: Nonedematous. No ductal dilation Spleen: No hematoma or laceration Adrenals: No hematoma or nodule Kidneys: No solid mass, laceration, or hydronephrosis. Vessels and lymph nodes: The main portal vein is patent. There is no retroperitoneal hematoma. No abdominal aortic aneurysm. No pathologic lymph nodes by size criteria. Bowel and peritoneum: No evidence of hemoperitoneum. No bowel obstruction. No pathologic ascites or drainable abscess. Nonspecific colonic submucosal fatty deposition may be from prior inflammation. The appendix is nondilated. Body wall: Tiny fat containing umbilical hernia. Pelvis: The bladder is unremarkable. Prostate is not well evaluated on this study. Bones: No acute or suspicious osseous finding. Multiple spinal endplate deformities probably representing degenerative disc disease. No acute fracture or traumatic subluxation of the thoracolumbar spine. IMPRESSION: No significant traumatic injury to the chest, abdomen, or pelvis. In the lungs, mild areas of ground-glass opacities may represent evolving contusions versus infectious/inflammatory foci. Additional scattered atelectasis, mucous plugging/aspiration are also noted. No pneumothorax or hemothorax. Other nonacute findings above. Dictated by: Christiano Castro M.D. on 07/02/2023 at 13:49 Approved by: Christiano Castro M.D. on 07/02/2023 at 13:57 [facility] Narrative Medical decision making narrative: Patient brought in by ambulance from home. Ground level fall 5 days ago while taking a shower he lost his balance and hit the edge of the shower with his head and lower back. Has had nausea and vomiting since then. Did have loss of consciousness. Patient is not on any blood thinners. Patient has felt very weak since then. Blood sugar 90. Today his legs were very weak and he fell again. No new injury. Patient is awake alert oriented x4. Moving all 4 extremities. Denies any limb injury. After history and exam CBC CMP total CK EKG normal saline Zofran CT head cervical spine chest abdomen pelvis respiratory panel urinalysis [facility] CC: Fall/weakness/vomiting Complicating co-morbidities: None Data collected from: Patient and EMS Differential considered: Includes but not limited to intracranial injury/bleed/dehydration/viral syndrome/rhabdomyolysis Exam documented above, pertinent findings include: Elevated blood pressure Lab Test results independently reviewed as above. Pertinent findings: Independently reviewed EKG sinus rhythm rate 82 QT 448, peaked T-waves. Repeat EKG at 1755. Improved T-waves. Rate 78, sinus rhythm. Imaging studies independently reviewed: CT head cervical spine chest abdomen and pelvis no acute finding Consultations: 2:00 p.m.. Spoke with Cardiology EKG results, dr slaughter, readings are result of patient's potassium elevation of 7.3, need to address patient's electrolytes 3:[address] Shiraz Del Rio, nephrology with [facility], he will be happy to follow the patient if he is transferred to their hospital. Recommends 2 L normal saline. Then continue 125 mL/hour. Give D50 and then 5 units regular insulin. Repeat CMP every 4 hours. No dialysis at this time as patient is making urine. Treatments: Normal saline, calcium gluconate Re-evaluations: 3:30 p.m.. Updated patient and mother results. He will need to be transferred due to need for nephrology services, not necessarily dialysis. They do understand. Discussion: Appropriate for transfer, I have spoken with Nephrology Services. Patient is hemodynamically stable. Diagnosis: Rhabdomyolysis/acute renal injury 7:00 p.m. David: Sign out to Dr Robb. Patient needs ICU bed. [facility] does not have ICU beds. Dr. Del Rio has been contacted with Nephrology. Now recommends 75 mL/hour normal saline. Q.2 hours sodium checks with goal of 115 by the morning. <Roseanna Robb MD - Last Filed: 07/03/23 05:24> Lab Data Labs: Lab Results 07/02/23 07/02/23 07/02/23 Range/Units 13:16 13:55 14:50 WBC 9.3 (4.5-11.0) X10^3/uL RBC 4.30 L (4.5-5.9) X10^6/uL Hgb 13.4 L (13.5-17.5) g/dL Hct 37.6 L (41-53) % MCV 87.5 (80-100) fL MCH 31.1 (26-34) PG MCHC 35.6 (30-36) % RDW 13.0 (11.6-14.8) % Plt Count 241 (150-400) X10^3/uL Neut % (Auto) 86.3 H (50-75) % Lymph % (Auto) 5.1 L (25-40) % Trimble % (Auto) 8.0 (3-14) % Eos % (Auto) 0.2 L (2-4) % Baso % (Auto) 0.4 (0-2) % Neut # (Auto) 8000 H (5885-1730) /uL Lymph # (Auto) 500 L (7667-7695) /uL Trimble # (Auto) 700 (0-900) /uL Eos # (Auto) 0 (0-450) /uL Baso # (Auto) 0 (0-100) /uL ABG Sample Site ABG pH (7.35-7.45) ABG pCO2 (35-45) mmHg ABG pO2 (80-100) mmHg ABG HCO3 (23-27) mmol/L ABG Total CO2 (23-27) mmol/L ABG O2 Saturation (95-100) % ABG Base Excess (-2-3) mmol/L FiO2 Sodium 106 L* (137-145) mmol/L Potassium 7.4 H* (3.4-5.1) mmol/L Chloride 68 L* (98-107) mmol/L Carbon Dioxide 14 L (22-32) mmol/L BUN 152 H* (9-20) mg/dL Creatinine 19.29 H* (0.66-1.25) mg/dL Estimated GFR 3 L (>60) mL/min BUN/Creatinine Ratio 7.9 (6-22) Glucose 84 (70-100) mg/dL Calcium 4.8 L* (8.4-10.2) mg/dL Phosphorus (2.5-4.5) mg/dL Magnesium (1.6-2.3) mg/dL Total Bilirubin 0.7 (0.2-1.3) mg/dL AST 372 H (17-59) IU/L ALT 440 H (<50) IU/L Alkaline Phosphatase 47 (38-126) U/L Total Creatine Kinase 133540 H (55-170) U/L NT-Pro-B Natriuret Pep Total Protein 6.7 (6.3-8.2) g/dL Albumin 4.0 (3.5-5.0) g/dL Globulin 2.7 (1.7-4.1) g/dL Albumin/Globulin Ratio 1.5 (1.0-2.8) Lipase 365 H (23-300) U/L TSH (0.47-4.68) uIU/mL Urine Color Yellow Urine Appearance Cloudy Urine pH 5.5 (4.5-8.0) Ur Specific Randle 1.025 (1.000-1.035) Urine Protein 3+ H (Negative) Urine Glucose (UA) Trace H (Negative) g/dL Urine Ketones Trace H (NEGATIVE) Urine Occult Blood 3+ H (Negative) Urine Nitrate Negative (Negative) Urine Bilirubin 1+ H (NEGATIVE) Ur Bilirubin Confirm Cancelled Urine Urobilinogen 0.2 (0.2) E.U./dL Ur Leukocyte Esterase Negative (NEGATIVE) Urine RBC 1-5/hpf (0-5/HPF) Urine WBC 1-5/hpf (0-5/HPF) Ur Squamous Epith Cells None seen (0-5/HPF) Ur Renal Epithelial Cell >20/hpf H (0-1/HPF) Urine Bacteria None seen (None) Ur Culture Indicated? Cult not indicated Micro UA Comment Salicylates < 1.0 (<20) mg/dL U Opiates 300ng/mL cut Negative (Negative) Ur Oxycodone Screen Negative (Negative) Urine Methadone Screen Negative (Negative) Acetaminophen < 10 (10-30) ug/mL Ur Barbiturates Screen Negative (Negative) U Tricyclic Antidepress Negative (Negative) Ur Phencyclidine Scrn Negative (Negative) Ur Amphetamines Screen Negative (Negative) U Methamphetamines Scrn Negative (Negative) Ur MDMA Scrn (Ecstasy) Negative (Negative) U Benzodiazepines Scrn Negative (Negative) Urine Cocaine Screen Negative (Negative) U Marijuana (THC) Screen Negative (Negative) Urine Specific Randle (Normal) Ethyl Alcohol < 10 ( - 10) mg/dL Ur Creatinine (Normal) Chlamy pneumoniae PCR Not detected (Not Detect) Adenovirus (PCR) Not detected (Not Detect) B.parapertussis DNA PCR Not detected (Not Detecte) Coronavirus OC43 (PCR) Not detected (Not Detect) Coronavirus HKU1 (PCR) Not detected (Not Detect) Coronavirus 229E (PCR) Not detected (Not Detect) SARS-CoV-2 (PCR) Not detected (Not Detecte) Coronavirus NL63 (PCR) Not detected (Not Detect) Human Metapneumovir PCR Not detected (Not Detect) Influenza Type A (PCR) Not detected (Not Detect) Influenza Type B (PCR) Not detected (Not Detect) M. pneumoniae (PCR) Not detected (Not Detect) Parainfluenza 1 (PCR) Not detected (Not Detect) Parainfluenza 2 (PCR) Not detected (Not Detect) Parainfluenza 3 (PCR) Not detected (Not Detect) Parainfluenza 4 (PCR) Not detected (Not Detect) RSV (PCR) Not detected (Not Detect) Entero/Rhino (PCR) Not detected (Not Detect) 07/02/23 07/02/23 07/02/23 Range/Units 14:50 16:15 19:20 WBC (4.5-11.0) X10^3/uL RBC (4.5-5.9) X10^6/uL Hgb (13.5-17.5) g/dL Hct (41-53) % MCV (80-100) fL MCH (26-34) PG MCHC (30-36) % RDW (11.6-14.8) % Plt Count (150-400) X10^3/uL Neut % (Auto) (50-75) % Lymph % (Auto) (25-40) % Trimble % (Auto) (3-14) % Eos % (Auto) (2-4) % Baso % (Auto) (0-2) % Neut # (Auto) (1495-7809) /uL Lymph # (Auto) (0774-0347) /uL Trimble # (Auto) (0-900) /uL Eos # (Auto) (0-450) /uL Baso # (Auto) (0-100) /uL ABG Sample Site ABG pH (7.35-7.45) ABG pCO2 (35-45) mmHg ABG pO2 (80-100) mmHg ABG HCO3 (23-27) mmol/L ABG Total CO2 (23-27) mmol/L ABG O2 Saturation (95-100) % ABG Base Excess (-2-3) mmol/L FiO2 Sodium 110 L* 115 L* (137-145) mmol/L Potassium 6.6 H* 5.5 H (3.4-5.1) mmol/L Chloride 74 L* 85 L (98-107) mmol/L Carbon Dioxide 14 L 11 L (22-32) mmol/L BUN 151 H* 133 H* (9-20) mg/dL Creatinine 18.85 H* 15.65 H* (0.66-1.25) mg/dL Estimated GFR 3 L 4 L (>60) mL/min BUN/Creatinine Ratio 8.0 8.5 (6-22) Glucose 72 69 L (70-100) mg/dL Calcium 4.9 L* 3.8 L* (8.4-10.2) mg/dL Phosphorus 11.2 H* (2.5-4.5) mg/dL Magnesium 2.7 H (1.6-2.3) mg/dL Total Bilirubin 0.6 0.5 (0.2-1.3) mg/dL AST 321 H 238 H (17-59) IU/L ALT 418 H 335 H (<50) IU/L Alkaline Phosphatase 42 35 L (38-126) U/L Total Creatine Kinase (55-170) U/L NT-Pro-B Natriuret Pep Cancelled Total Protein 6.3 5.1 L (6.3-8.2) g/dL Albumin 3.6 2.7 L (3.5-5.0) g/dL Globulin 2.7 2.4 (1.7-4.1) g/dL Albumin/Globulin Ratio 1.3 1.1 (1.0-2.8) Lipase (23-300) U/L TSH 1.94 (0.47-4.68) uIU/mL Urine Color Urine Appearance Urine pH Normal (4.5-8.0) Ur Specific Randle (1.000-1.035) Urine Protein (Negative) Urine Glucose (UA) (Negative) g/dL Urine Ketones (NEGATIVE) Urine Occult Blood (Negative) Urine Nitrate (Negative) Urine Bilirubin (NEGATIVE) Ur Bilirubin Confirm Urine Urobilinogen (0.2) E.U./dL Ur Leukocyte Esterase (NEGATIVE) Urine RBC (0-5/HPF) Urine WBC (0-5/HPF) Ur Squamous Epith Cells (0-5/HPF) Ur Renal Epithelial Cell (0-1/HPF) Urine Bacteria (None) Ur Culture Indicated? Micro UA Comment Salicylates (<20) mg/dL U Opiates 300ng/mL cut (Negative) Ur Oxycodone Screen (Negative) Urine Methadone Screen (Negative) Acetaminophen (10-30) ug/mL Ur Barbiturates Screen (Negative) U Tricyclic Antidepress (Negative) Ur Phencyclidine Scrn (Negative) Ur Amphetamines Screen (Negative) U Methamphetamines Scrn (Negative) Ur MDMA Scrn (Ecstasy) (Negative) U Benzodiazepines Scrn (Negative) Urine Cocaine Screen (Negative) U Marijuana (THC) Screen (Negative) Urine Specific Randle Normal (Normal) Ethyl Alcohol ( - 10) mg/dL Ur Creatinine Normal (Normal) Chlamy pneumoniae PCR (Not Detect) Adenovirus (PCR) (Not Detect) B.parapertussis DNA PCR (Not Detecte) Coronavirus OC43 (PCR) (Not Detect) Coronavirus HKU1 (PCR) (Not Detect) Coronavirus 229E (PCR) (Not Detect) SARS-CoV-2 (PCR) (Not Detecte) Coronavirus NL63 (PCR) (Not Detect) Human Metapneumovir PCR (Not Detect) Influenza Type A (PCR) (Not Detect) Influenza Type B (PCR) (Not Detect) M. pneumoniae (PCR) (Not Detect) Parainfluenza 1 (PCR) (Not Detect) Parainfluenza 2 (PCR) (Not Detect) Parainfluenza 3 (PCR) (Not Detect) Parainfluenza 4 (PCR) (Not Detect) RSV (PCR) (Not Detect) Entero/Rhino (PCR) (Not Detect) 07/02/23 07/03/23 07/03/23 Range/Units 21:18 00:08 03:55 WBC (4.5-11.0) X10^3/uL RBC (4.5-5.9) X10^6/uL Hgb (13.5-17.5) g/dL Hct (41-53) % MCV (80-100) fL MCH (26-34) PG MCHC (30-36) % RDW (11.6-14.8) % Plt Count (150-400) X10^3/uL Neut % (Auto) (50-75) % Lymph % (Auto) (25-40) % Trimble % (Auto) (3-14) % Eos % (Auto) (2-4) % Baso % (Auto) (0-2) % Neut # (Auto) (8097-3822) /uL Lymph # (Auto) (7060-6156) /uL Trimble # (Auto) (0-900) /uL Eos # (Auto) (0-450) /uL Baso # (Auto) (0-100) /uL ABG Sample Site Left radial ABG pH 7.35 (7.35-7.45) ABG pCO2 24.2 L* (35-45) mmHg ABG pO2 78 L (80-100) mmHg ABG HCO3 13 L (23-27) mmol/L ABG Total CO2 14 L (23-27) mmol/L ABG O2 Saturation 95 (95-100) % ABG Base Excess -12.0 L (-2-3) mmol/L FiO2 21 Sodium Cancelled 109 L* (137-145) mmol/L Potassium Cancelled 6.5 H* (3.4-5.1) mmol/L Chloride Cancelled 74 L* (98-107) mmol/L Carbon Dioxide Cancelled 13 L (22-32) mmol/L BUN Cancelled 149 H* (9-20) mg/dL Creatinine Cancelled 17.79 H* (0.66-1.25) mg/dL Estimated GFR Cancelled 3 L (>60) mL/min BUN/Creatinine Ratio Cancelled 8.4 (6-22) Glucose Cancelled 99 (70-100) mg/dL Calcium Cancelled 5.2 L* (8.4-10.2) mg/dL Phosphorus (2.5-4.5) mg/dL Magnesium (1.6-2.3) mg/dL Total Bilirubin Cancelled 0.6 (0.2-1.3) mg/dL AST Cancelled 232 H (17-59) IU/L ALT Cancelled 371 H (<50) IU/L Alkaline Phosphatase Cancelled 43 (38-126) U/L Total Creatine Kinase (55-170) U/L NT-Pro-B Natriuret Pep Total Protein Cancelled 6.1 L (6.3-8.2) g/dL Albumin Cancelled 3.5 (3.5-5.0) g/dL Globulin Cancelled 2.6 (1.7-4.1) g/dL Albumin/Globulin Ratio Cancelled 1.3 (1.0-2.8) Lipase (23-300) U/L TSH (0.47-4.68) uIU/mL Urine Color Urine Appearance Urine pH (4.5-8.0) Ur Specific Randle (1.000-1.035) Urine Protein (Negative) Urine Glucose (UA) (Negative) g/dL Urine Ketones (NEGATIVE) Urine Occult Blood (Negative) Urine Nitrate (Negative) Urine Bilirubin (NEGATIVE) Ur Bilirubin Confirm Urine Urobilinogen (0.2) E.U./dL Ur Leukocyte Esterase (NEGATIVE) Urine RBC (0-5/HPF) Urine WBC (0-5/HPF) Ur Squamous Epith Cells (0-5/HPF) Ur Renal Epithelial Cell (0-1/HPF) Urine Bacteria (None) Ur Culture Indicated? Micro UA Comment Salicylates (<20) mg/dL U Opiates 300ng/mL cut (Negative) Ur Oxycodone Screen (Negative) Urine Methadone Screen (Negative) Acetaminophen (10-30) ug/mL Ur Barbiturates Screen (Negative) U Tricyclic Antidepress (Negative) Ur Phencyclidine Scrn (Negative) Ur Amphetamines Screen (Negative) U Methamphetamines Scrn (Negative) Ur MDMA Scrn (Ecstasy) (Negative) U Benzodiazepines Scrn (Negative) Urine Cocaine Screen (Negative) U Marijuana (THC) Screen (Negative) Urine Specific Randle (Normal) Ethyl Alcohol ( - 10) mg/dL Ur Creatinine (Normal) Chlamy pneumoniae PCR (Not Detect) Adenovirus (PCR) (Not Detect) B.parapertussis DNA PCR (Not Detecte) Coronavirus OC43 (PCR) (Not Detect) Coronavirus HKU1 (PCR) (Not Detect) Coronavirus 229E (PCR) (Not Detect) SARS-CoV-2 (PCR) (Not Detecte) Coronavirus NL63 (PCR) (Not Detect) Human Metapneumovir PCR (Not Detect) Influenza Type A (PCR) (Not Detect) Influenza Type B (PCR) (Not Detect) M. pneumoniae (PCR) (Not Detect) Parainfluenza 1 (PCR) (Not Detect) Parainfluenza 2 (PCR) (Not Detect) Parainfluenza 3 (PCR) (Not Detect) Parainfluenza 4 (PCR) (Not Detect) RSV (PCR) (Not Detect) Entero/Rhino (PCR) (Not Detect) 07/03/23 Range/Units 04:05 WBC (4.5-11.0) X10^3/uL RBC (4.5-5.9) X10^6/uL Hgb (13.5-17.5) g/dL Hct (41-53) % MCV (80-100) fL MCH (26-34) PG MCHC (30-36) % RDW (11.6-14.8) % Plt Count (150-400) X10^3/uL Neut % (Auto) (50-75) % Lymph % (Auto) (25-40) % Trimble % (Auto) (3-14) % Eos % (Auto) (2-4) % Baso % (Auto) (0-2) % Neut # (Auto) (8851-1876) /uL Lymph # (Auto) (7429-2496) /uL Trimble # (Auto) (0-900) /uL Eos # (Auto) (0-450) /uL Baso # (Auto) (0-100) /uL ABG Sample Site ABG pH (7.35-7.45) ABG pCO2 (35-45) mmHg ABG pO2 (80-100) mmHg ABG HCO3 (23-27) mmol/L ABG Total CO2 (23-27) mmol/L ABG O2 Saturation (95-100) % ABG Base Excess (-2-3) mmol/L FiO2 Sodium 113 L* (137-145) mmol/L Potassium 5.2 H D (3.4-5.1) mmol/L Chloride 76 L* (98-107) mmol/L Carbon Dioxide 14 L (22-32) mmol/L BUN 152 H* (9-20) mg/dL Creatinine 19.75 H* (0.66-1.25) mg/dL Estimated GFR 3 L (>60) mL/min BUN/Creatinine Ratio 7.7 (6-22) Glucose 45 L* (70-100) mg/dL Calcium 5.9 L* (8.4-10.2) mg/dL Phosphorus (2.5-4.5) mg/dL Magnesium (1.6-2.3) mg/dL Total Bilirubin 0.6 (0.2-1.3) mg/dL AST 206 H (17-59) IU/L ALT 374 H (<50) IU/L Alkaline Phosphatase 47 (38-126) U/L Total Creatine Kinase (55-170) U/L NT-Pro-B Natriuret Pep Total Protein 6.2 L (6.3-8.2) g/dL Albumin 3.6 (3.5-5.0) g/dL Globulin 2.6 (1.7-4.1) g/dL Albumin/Globulin Ratio 1.4 (1.0-2.8) Lipase (23-300) U/L TSH (0.47-4.68) uIU/mL Urine Color Urine Appearance Urine pH (4.5-8.0) Ur Specific Randle (1.000-1.035) Urine Protein (Negative) Urine Glucose (UA) (Negative) g/dL Urine Ketones (NEGATIVE) Urine Occult Blood (Negative) Urine Nitrate (Negative) Urine Bilirubin (NEGATIVE) Ur Bilirubin Confirm Urine Urobilinogen (0.2) E.U./dL Ur Leukocyte Esterase (NEGATIVE) Urine RBC (0-5/HPF) Urine WBC (0-5/HPF) Ur Squamous Epith Cells (0-5/HPF) Ur Renal Epithelial Cell (0-1/HPF) Urine Bacteria (None) Ur Culture Indicated? Micro UA Comment Salicylates (<20) mg/dL U Opiates 300ng/mL cut (Negative) Ur Oxycodone Screen (Negative) Urine Methadone Screen (Negative) Acetaminophen (10-30) ug/mL Ur Barbiturates Screen (Negative) U Tricyclic Antidepress (Negative) Ur Phencyclidine Scrn (Negative) Ur Amphetamines Screen (Negative) U Methamphetamines Scrn (Negative) Ur MDMA Scrn (Ecstasy) (Negative) U Benzodiazepines Scrn (Negative) Urine Cocaine Screen (Negative) U Marijuana (THC) Screen (Negative) Urine Specific Randle (Normal) Ethyl Alcohol ( - 10) mg/dL Ur Creatinine (Normal) Chlamy pneumoniae PCR (Not Detect) Adenovirus (PCR) (Not Detect) B.parapertussis DNA PCR (Not Detecte) Coronavirus OC43 (PCR) (Not Detect) Coronavirus HKU1 (PCR) (Not Detect) Coronavirus 229E (PCR) (Not Detect) SARS-CoV-2 (PCR) (Not Detecte) Coronavirus NL63 (PCR) (Not Detect) Human Metapneumovir PCR (Not Detect) Influenza Type A (PCR) (Not Detect) Influenza Type B (PCR) (Not Detect) M. pneumoniae (PCR) (Not Detect) Parainfluenza 1 (PCR) (Not Detect) Parainfluenza 2 (PCR) (Not Detect) Parainfluenza 3 (PCR) (Not Detect) Parainfluenza 4 (PCR) (Not Detect) RSV (PCR) (Not Detect) Entero/Rhino (PCR) (Not Detect) Point of Care Testing Glucose POC 151 MDM Narrative Medical decision making narrative: Patient brought in by ambulance from home. Ground level fall 5 days ago while taking a shower he lost his balance and hit the edge of the shower with his head and lower back. Has had nausea and vomiting since then. Did have loss of consciousness. Patient is not on any blood thinners. Patient has felt very weak since then. Blood sugar 90. Today his legs were very weak and he fell again. No new injury. Patient is awake alert oriented x4. Moving all 4 extremities. Denies any limb injury. After history and exam CBC CMP total CK EKG normal saline Zofran CT head cervical spine chest abdomen pelvis respiratory panel urinalysis [facility] CC: Fall/weakness/vomiting Complicating co-morbidities: None Data collected from: Patient and EMS Differential considered: Includes but not limited to intracranial injury/bleed/dehydration/viral syndrome/rhabdomyolysis Exam documented above, pertinent findings include: Elevated blood pressure Lab Test results independently reviewed as above. Pertinent findings: Chemistries diarrhea dramatically abnormal with creatinine at 19.3, sodium 106, potassium 7.4, calcium 4.8 and total creatinine kinase at 201,200 Independently reviewed EKG sinus rhythm rate 82 QT 448, peaked T-waves. Repeat EKG at 1755. Improved T-waves. Rate 78, sinus rhythm. Imaging studies independently reviewed: CT head cervical spine chest abdomen and pelvis no acute finding Consultations: 2:00 p.m.. Spoke with Cardiology EKG results, dr slaughter, readings are result of patient's potassium elevation of 7.3, need to address patient's electrolytes 3:[address] Shiraz Del Rio, nephrology with [facility], he will be happy to follow the patient if he is transferred to their hospital. Recommends 2 L normal saline. Then continue 125 mL/hour. Give D50 and then 5 units regular insulin. Repeat CMP every 4 hours. No dialysis at this time as patient is making urine. Treatments: Parenteral Normal saline, calcium gluconate, insulin, glucose, Zofran Requests something to help with sleep, a mg of oral Ativan is given. Re-evaluations: 3:30 p.m.. Updated patient and mother results. He will need to be transferred due to need for nephrology services, not necessarily dialysis. They do understand. Discussion: Appropriate for transfer, I have spoken with Nephrology Services. Patient is hemodynamically stable. Diagnosis: Rhabdomyolysis, acute renal failure, dramatic electrolyte abnormalities including sodium, potassium, calcium, phosphorus, magnesium 7:00 p.m. David: Sign out to Dr Robb. Patient needs ICU bed. [facility] does not have ICU beds. Dr. Del Rio has been contacted with Nephrology. Now recommends 75 mL/hour normal saline. Q.2 hours sodium checks with goal of [address] by the morning. 8pm Dr Robb. Care is accepted, patient is independently evaluated. Chart is reviewed. We are currently looking for an ICU bed Brief summary: 32-year-old gentleman with a fall 5 days ago, has been laying in bed with significant vomiting presents with rhabdomyolysis, severe hyponatremia with sodium at 106, significant hyperkalemia, acute renal failure with initial creatinine at 19.29, calcium low at 4.8, elevated creatinine kinase at greater than 200,000 Interventions today include treatment for hyperkalemia with insulin, glucose, calcium. He is currently on his 3 L of saline and after consultation with Nephrology recommendation was to continue saline at 125 cc an hour. Repeating blood work every 2 hours. Magnesium and phosphorus will be added Chemistries returning from 7:30 p.m: Sodium increased to 115 Potassium down to 5.5 Chloride up to 85 BUN down to 133 Creatinine down to 15.6 Calcium down to 3.8 AST Trending down to 238 ALT trending down to 335 850pm: Working on transfer appropriate placement. Calling [facility] at this point as no other facilities have capacity, we have contacted [facility], [facility] and [facility]. [facility] [place] indicates there are no beds at all in the [facility] and if he becomes worse or hemodynamically unstable we can call back otherwise we will need to continue to provide care for him in the emergency department overnight. 9pm care is reviewed with Dr. Del Rio, on-call Nephrology to come up with a plan over the evening. His recommendation is to stop all IV fluids at this point with sodium appropriately corrected for the 1st 24 hours at this time. Agreed with the 2 amps of calcium gluconate that have been ordered and recommended 2 g of Tums every 6 hours. Did not recommend any other replacements at this time and did recommend that he be allowed to eat and drink as he desires. Continued lab work decreasing to q.4 hours at this time. Patient will be voiding overnight. 940pm Mother adds additional information: Patient has been drinking up to 3 weeks ago. There is a history of drug use. At this time there is no evidence of any acute withdrawal. Urine drug screen is added 1am Lab results Urine tox screen and blood alcohol are all unremarkable Sodium is falling back to 109 Potassium increasing to 6.5 Chloride decreasing to 74 Creatinine increasing to 17.8 Calcium increasing to 5.2 AST and ALT are essentially stable total urine out put for ED visit 50cc 2AM in consultation with Dr. Del Rio, nephrology recommended restarting saline at 125/ hour, repeating insulin, glucose and calcium gluconate he is aware of the urine output at only 50 cc since admission. Next labs will be drawn at 4:00 a.m.. 230am [facility], contacted by [facility]. No beds for 2-[address] Johnson, hospitalist. Recognized this is an ICU patient. Will need to talk with the electronic industrial controls mechanic. Process to get on waiting list for acceptance. Dr Sharpe, electronic industrial controls mechanic accepts patient. Waiting for beds. They will call with availability, we can call with shift changes for updates. 3am Kathy Crowley calls for additional information. Aware of need for CCU bed. States 1 bed available. Will have electronic industrial controls mechanic return call. 315 Dr Brunson, electronic industrial controls mechanic accepts admit. Bed availiable. Will arrange for transport. 410 hypoglycemia at 46. D50 is given. AB.345 CO2 24 PO2 78 HCO3 13.2 BE -12 4am labs Sodium is at 113, goal is 115 by this afternoon Potassium is down to 5.2 Creatinine continues to increase his currently at 19.75 Calcium at 5.9 Glucose is low at 45, he is already been given an amp of D50 and is drinking mary uma Transport is currently available Partner has been notified of transport and hospital for transfer. Critical Care Time <Roseanna Robb MD - Last Filed: 07/03/23 05:24> Critical Care Time Critical Care Time: Yes Total Critical Care Time: 127 Attestation: Critical care time is separate from other billable procedures. There is a high probability of a significant, sudden or life-threatening deterioration that requires my full and direct attention, intervention and personal management. This critical care time includes consultation with family and other consulting doctors, review of records, and interpretation of data from labs, EKGs and imaging as well as managements of acute renal failure, life-threatening electrolyte abnormalities and extensive consultation with consultants Discharge Plan Departure Patient Disposition: [facility] Clinical Impression: Acute renal failure due to rhabdomyolysis, Acute hyponatremia, Acute hyperkalemia, Hypomagnesemia, Hyperphosphatemia, Hypocalcemia, Anuria Prescriptions: No Action No Known Home Medications Referrals: Olivia Davidson DO [Primary Care Provider] -
[2023-07-02] MEDS: ONDANSETRON 4 MG/2 ML INJ IV (13:18)
[2023-07-02 13:24] LABS: Add Manual Diff / Slide Review NO; Basophils Absolute Auto 0 /uL (0-100); Basophils Percent Auto 0.4 % (0-2); Eosinophils Absolute Auto 0 /uL (0-450); Eosinophils Percent Auto 0.2 % (2-4); Hematocrit 37.6 % (41-53); Hemoglobin 13.4 g/dL (13.5-17.5); Lymphocytes Absolute Auto 500 /uL (1100-4500); Lymphocytes Percent Auto 5.1 % (25-40); Mean Corpuscular HGB Conc 35.6 % (30-36); Mean Corpuscular Hemoglobin 31.1 PG (26-34); Mean Corpuscular Volume 87.5 fL (80-100); Monocytes Absolute Auto 700 /uL (0-900); Neutrophils Absolute Auto 8000 /uL (1500-7000); Neutrophils Percent Auto 86.3 % (50-75); Platelet Count 241 X10^3/uL (150-400); White Blood Cell Count 9.3 X10^3/uL (4.5-11.0)
[2023-07-02] MEDS: SODIUM CHLORIDE 0.9% 1,000 ML 1000 ML IV ×2 (13:35→14:26)
[2023-07-02] MEDS: CALCIUM GLUCONATE 4.65 MEQ in SODIUM CHLORIDE 0.9% 50 ML 180 MEQ IV (14:25)
[2023-07-02 14:26] LABS: Alanine Aminotransferase 440 IU/L (<50); Albumin Globulin Ratio 1.5 (1.0-2.8); Alkaline Phosphatase 47 U/L (38-126); Aspartate Aminotransferase 372 IU/L (17-59); Bilirubin Total 0.7 mg/dL (0.2-1.3); Carbon Dioxide 14 mmol/L (22-32); Ethanol (ETOH) < 10 mg/dL; Globulin 2.7 g/dL (1.7-4.1); Glucose 84 mg/dL (70-100); HEMOLYSIS < 15 (0-50); Lipase 365 U/L (23-300); Total Protein 6.7 g/dL (6.3-8.2)
[2023-07-02] MEDS: LIDOCAINE 2% (GLYDO) 6 ML GEL TOP (14:31)
[2023-07-02 14:38] LABS: Potassium 7.4 mmol/L (3.4-5.1); Sodium 106 mmol/L (137-145)
[2023-07-02 14:39] LABS: Blood Urea Nitrogen 152 mg/dL (9-20); Calcium 4.8 mg/dL (8.4-10.2); Chloride 68 mmol/L (98-107)
[2023-07-02 14:53] LABS: Adenovirus Not Detected (Not Detect); B. parapertussis Not Detected (Not Detecte); Bordetella pertussis Not Detected (Not Detect); Chlamydophila pneumoniae Not Detected (Not Detect); Coronavirus 229E Not Detected (Not Detect); Coronavirus HKU1 Not Detected (Not Detect); Coronavirus NL 63 Not Detected (Not Detect); Coronavirus OC43 Not Detected (Not Detect); Human Metapneumovirus Not Detected (Not Detect); Human Rhinovirus/Enterovirus Not Detected (Not Detect); Influenza A Not Detected (Not Detect); Influenza B Not Detected (Not Detect); Mycoplasma pneumoniae Not Detected (Not Detect); Parainfluenza Virus 1 Not Detected (Not Detect); Parainfluenza Virus 2 Not Detected (Not Detect); Parainfluenza Virus 3 Not Detected (Not Detect); Parainfluenza Virus 4 Not Detected (Not Detect); Respiratory Syncytial Virus Not Detected (Not Detect); SARS- CoV-2 Not Detected (Not Detecte)
[2023-07-02 15:07] LABS: BUN Creatinine Ratio 7.9 (6-22); Estimated Glomerular Filt Rate 3 mL/min (>60)
[2023-07-02 15:21] LABS: Appearance Urine UA CLOUDY; Bilirubin Urine UA 1+ (NEGATIVE); Color Urine UA YELLOW; Glucose Urine UA TRACE g/dL (Negative); Ketones Urine UA TRACE (NEGATIVE); Leukocyte Esterase Urine UA NEGATIVE (NEGATIVE); Nitrite Urine UA NEGATIVE (Negative); Occult Blood Urine UA 3+ (Negative); Protein Urine UA 3+ (Negative); Specific Gravity Urine UA 1.025 (1.000-1.035); Urobilinogen Urine UA 0.2 E.U./dL (0.2); pH Urine UA 5.5 (4.5-8.0)
[2023-07-02] MEDS: DEXTROSE 50 % IN WATER 25 GM/50 ML SYRINGE IV (15:26)
[2023-07-02] MEDS: INSULIN REGULAR 100 UNIT/ML 3 ML VIAL IV (15:26)
[2023-07-02 15:27] LABS: Bacteria Urine None Seen; RBC Urine 1-5/HPF (0-5/HPF); Squamous Epithelial Cell Urine None Seen (0-5/HPF); WBC Urine 1-5/HPF (0-5/HPF)
[2023-07-02 15:28] LABS: Renal Epithelial Cells Urine >20/HPF (0-1/HPF)
[2023-07-02] MEDS: SODIUM CHLORIDE 0.9% 1,000 ML 125 ML IV (15:28)
[2023-07-02 15:29] LABS: Culture Indicated Urine Cult Not Indicated
[2023-07-02 16:11] LABS: Creatine Kinase 201200 U/L (55-170)
--- NOTE | 2023-07-02 16:30 | PC.NURSE ---
Family reports history of severe alcohol abuse. patient denies any recent drinking, has been sober for 6 months.
[2023-07-02 16:35] LABS: Alanine Aminotransferase 418 IU/L (<50); Albumin 3.6 g/dL (3.5-5.0); Albumin Globulin Ratio 1.3 (1.0-2.8); Alkaline Phosphatase 42 U/L (38-126); Aspartate Aminotransferase 321 IU/L (17-59); Bilirubin Total 0.6 mg/dL (0.2-1.3); Carbon Dioxide 14 mmol/L (22-32); Globulin 2.7 g/dL (1.7-4.1); Glucose 72 mg/dL (70-100); HEMOLYSIS < 15 (0-50); Total Protein 6.3 g/dL (6.3-8.2)
[2023-07-02 16:57] LABS: Estimated Glomerular Filt Rate 3 mL/min (>60)
[2023-07-02 16:59] LABS: Blood Urea Nitrogen 151 mg/dL (9-20); Calcium 4.9 mg/dL (8.4-10.2); Chloride 74 mmol/L (98-107); Potassium 6.6 mmol/L (3.4-5.1); Sodium 110 mmol/L (137-145)
[2023-07-02] MEDS: MORPHINE 4 MG/ML INJ IV (17:21)
--- NOTE | 2023-07-02 17:55 | PC.NURSE ---
1700 Patient requests pain meds for all over muscle pain, Doctor David informed and aware.
[2023-07-02 19:40] LABS: Alanine Aminotransferase 335 IU/L (<50); Albumin 2.7 g/dL (3.5-5.0); Albumin Globulin Ratio 1.1 (1.0-2.8); Alkaline Phosphatase 35 U/L (38-126); Aspartate Aminotransferase 238 IU/L (17-59); Bilirubin Total 0.5 mg/dL (0.2-1.3); Carbon Dioxide 11 mmol/L (22-32); Chloride 85 mmol/L (98-107); Globulin 2.4 g/dL (1.7-4.1); Glucose 69 mg/dL (70-100); Total Protein 5.1 g/dL (6.3-8.2)
[2023-07-02 19:58] LABS: BUN Creatinine Ratio 8.5 (6-22); Estimated Glomerular Filt Rate 4 mL/min (>60); HEMOLYSIS < 15 (0-50); Potassium 5.5 mmol/L (3.4-5.1)
[2023-07-02 20:01] LABS: Blood Urea Nitrogen 133 mg/dL (9-20); Calcium 3.8 mg/dL (8.4-10.2); Sodium 115 mmol/L (137-145)
--- NOTE | 2023-07-02 20:07 | PC.NURSE ---
Patient requests benadryl to help sleep. Dr. Robb informed and aware.
[2023-07-02 20:18] LABS: Magnesium 2.7 mg/dL (1.6-2.3)
[2023-07-02 20:21] LABS: Phosphorous 11.2 mg/dL (2.5-4.5)
[2023-07-02 21:01] LABS: Acetaminophen < 10 ug/mL (10-30); Salicylate < 1.0 mg/dL (<20)
[2023-07-02] MEDS: CALCIUM GLUCONATE 9.3 MEQ in SODIUM CHLORIDE 0.9% 100 ML 140 MEQ IV (21:10)
[2023-07-02] MEDS: LORazepam 0.5 MG TABLET 1 MG PO (21:29)
[2023-07-02] MEDS: CALCIUM CARBONATE 500 MG TAB 1000 MG PO (21:37)
[2023-07-02 21:43] LABS: UR Morphine/Opiate cutoff 300 Negative (Negative); Ur Creatinine Normal (Normal); Ur Specific Gravity Normal (Normal); Urine Amphetamines Negative (Negative); Urine Barbiturates Negative (Negative); Urine Benzodiazepines Negative (Negative); Urine Cocaine Negative (Negative); Urine MDMA Negative (Negative); Urine Methadone Negative (Negative); Urine Methamphetamines Negative (Negative); Urine Oxycodone Negative (Negative); Urine Phencyclidine Negative (Negative); Urine Tetrahydrocannabinol Negative (Negative); Urine Tricyclic Antidepressant Negative (Negative); Urine pH Normal (Normal)
[2023-07-02 21:55] LABS: TSH w/ Reflex to FT4 1.94 uIU/mL (0.47-4.68)
--- NOTE | 2023-07-02 23:26 | PC.NURSE ---
SENIOR CASE MANAGER note: Attempting to transfer patient out of hospital to higher level of care. spoke to Uriel. Told us to try [facility]. CC 2034 said there is no beds anywhere in the state. Got patient a hospital bed for the night. Updated RNs and Doctor.
[2023-07-03] VITALS (12 sets, daily range): BP systolic 127–152; BP diastolic 63–83; PULSE 75–87; RESP 17–25; TEMP 36.5; O2SAT 90–97
[2023-07-03] MEDS: CALCIUM CARBONATE 500 MG TAB 1000 MG PO (00:16)
[2023-07-03 00:29] LABS: Alanine Aminotransferase 371 IU/L (<50); Albumin 3.5 g/dL (3.5-5.0); Albumin Globulin Ratio 1.3 (1.0-2.8); Alkaline Phosphatase 43 U/L (38-126); Aspartate Aminotransferase 232 IU/L (17-59); Bilirubin Total 0.6 mg/dL (0.2-1.3); Carbon Dioxide 13 mmol/L (22-32); Globulin 2.6 g/dL (1.7-4.1); Glucose 99 mg/dL (70-100); HEMOLYSIS < 15 (0-50); Total Protein 6.1 g/dL (6.3-8.2)
[2023-07-03 00:49] LABS: BUN Creatinine Ratio 8.4 (6-22); Estimated Glomerular Filt Rate 3 mL/min (>60)
[2023-07-03 00:51] LABS: Potassium 6.5 mmol/L (3.4-5.1); Sodium 109 mmol/L (137-145)
[2023-07-03 00:52] LABS: Blood Urea Nitrogen 149 mg/dL (9-20); Calcium 5.2 mg/dL (8.4-10.2); Chloride 74 mmol/L (98-107)
--- NOTE | 2023-07-03 00:53 | ED.CALLS ---
0050: Lab reports critical results Na 109, K+ 6.5, Chloride 74, BUN 149, Cr 17.79, Calcium 5.2 Dr. Robb aware @ 3081
[2023-07-03] MEDS: INSULIN REGULAR 100 UNIT/ML 3 ML VIAL 10 UNIT IV (02:20)
[2023-07-03] MEDS: SODIUM CHLORIDE 0.9% 1,000 ML 125 ML IV (02:22)
[2023-07-03] MEDS: DEXTROSE 50 % IN WATER 25 GM/50 ML SYRINGE IV ×2 (02:22→04:13)
[2023-07-03] MEDS: CALCIUM GLUCONATE 4.65 MEQ in SODIUM CHLORIDE 0.9% 50 ML 180 MEQ IV (02:22)
[2023-07-03 04:20] LABS: PO2 ABG 78 mmHg (80-100); pH ABG 7.35 (7.35-7.45)
[2023-07-03 04:21] LABS: Blood Gas Collection Site Left Radial; Fractionated Inspired Oxygen 21; HCO3 ABG 13 mmol/L (23-27); Oxygen Saturation ABG 95 % (95-100); PCO2 ABG 24.2 mmHg (35-45); TCO2 ABG 14 mmol/L (23-27)
[2023-07-03 04:22] LABS: Allen Test for ABG Passed? Yes, Passed
[2023-07-03 04:28] LABS: Alanine Aminotransferase 374 IU/L (<50); Albumin 3.6 g/dL (3.5-5.0); Albumin Globulin Ratio 1.4 (1.0-2.8); Alkaline Phosphatase 47 U/L (38-126); Aspartate Aminotransferase 206 IU/L (17-59); Bilirubin Total 0.6 mg/dL (0.2-1.3); Carbon Dioxide 14 mmol/L (22-32); Globulin 2.6 g/dL (1.7-4.1); HEMOLYSIS < 15 (0-50); Potassium 5.2 mmol/L (3.4-5.1); Total Protein 6.2 g/dL (6.3-8.2)
[2023-07-03 04:38] LABS: BUN Creatinine Ratio 7.7 (6-22); Estimated Glomerular Filt Rate 3 mL/min (>60)
[2023-07-03 04:40] LABS: Blood Urea Nitrogen 152 mg/dL (9-20); Chloride 76 mmol/L (98-107); Glucose 45 mg/dL (70-100); Sodium 113 mmol/L (137-145)
[2023-07-03 04:41] LABS: Calcium 5.9 mg/dL (8.4-10.2)
== END 2023-07-03 05:25 | disposition short-term general hospital (02) ==
PROVIDERS: Emergency Medicine; Emergency Provider Emergency Medicine; PCP Family Medicine
DX: R34 Anuria and oliguria (principal); E83.51 Hypocalcemia; E83.39 Other disorders of phosphorus metabolism; E83.42 Hypomagnesemia; E87.5 Hyperkalemia; N17.9 Acute kidney failure, unspecified; R11.2 Nausea with vomiting, unspecified; S09.90XA Unspecified injury of head, initial encounter; M54.2 Cervicalgia; Z20.822 Contact with and (suspected) exposure to COVID-19; W18.2XXA Fall in (into) shower or empty bathtub, initial encounter; R29.6 Repeated falls
CPT/HCPCS: 36415; 36600; 70450; 71260; 72125; 74177; 80053; 80305; 80320; 80329; 81001; 82550; 82805; 82962; 83690; 83735; 84100; 84443; 85025; 87633; 93005; 96361; 96374; 96375; 96376; 99285; 99291; 99292; G0390; G0480; J0612; J2270; J2405

== ENCOUNTER → 2023-08-14 09:22 | Outpatient (CLI) | payer OTHER, MEDICAID, SELFPAY ==
[2023-08-14 09:57] LABS: BUN Creatinine Ratio 7.5 (6-22); Blood Urea Nitrogen 20 mg/dL (9-20); Calcium 9.7 mg/dL (8.4-10.2); Carbon Dioxide 27 mmol/L (22-32); Chloride 99 mmol/L (98-107); Estimated Glomerular Filt Rate 31 mL/min (>60); Glucose 135 mg/dL (70-100); HEMOLYSIS < 15 (0-50); Potassium 4.1 mmol/L (3.4-5.1); Sodium 138 mmol/L (137-145)
== END ==
LOC: LAB 09:26
PROVIDERS: PCP Family Medicine; Referring Provider Student in an Organized Health Care Education/Training Program; Visit Provider Student in an Organized Health Care Education/Training Program
DX: N05.9 Unspecified nephritic syndrome with unspecified morphologic changes (principal)
CPT/HCPCS: 36415; 80048

== ENCOUNTER → 2023-08-16 09:14 | Outpatient (CLI) | payer OTHER, MEDICAID, SELFPAY ==
[2023-08-16 10:19] LABS: BUN Creatinine Ratio 10.2 (6-22); Blood Urea Nitrogen 26 mg/dL (9-20); Calcium 9.6 mg/dL (8.4-10.2); Carbon Dioxide 22 mmol/L (22-32); Chloride 103 mmol/L (98-107); Estimated Glomerular Filt Rate 33 mL/min (>60); Glucose 121 mg/dL (70-100); HEMOLYSIS 45 (0-50); Potassium 4.5 mmol/L (3.4-5.1); Sodium 136 mmol/L (137-145)
== END ==
LOC: LAB 09:16
PROVIDERS: PCP Family Medicine; Referring Provider Student in an Organized Health Care Education/Training Program; Visit Provider Student in an Organized Health Care Education/Training Program
DX: N05.9 Unspecified nephritic syndrome with unspecified morphologic changes (principal)
CPT/HCPCS: 36415; 80048

== ENCOUNTER → 2023-08-21 09:16 | Outpatient (CLI) | payer OTHER, MEDICAID, SELFPAY ==
[2023-08-21 09:40] LABS: Hematocrit 25.9 % (41-53); Hemoglobin 8.9 g/dL (13.5-17.5)
[2023-08-21 09:53] LABS: BUN Creatinine Ratio 7.4 (6-22); Blood Urea Nitrogen 24 mg/dL (9-20); Calcium 9.4 mg/dL (8.4-10.2); Carbon Dioxide 26 mmol/L (22-32); Chloride 96 mmol/L (98-107); Estimated Glomerular Filt Rate 25 mL/min (>60); Glucose 112 mg/dL (70-100); HEMOLYSIS < 15 (0-50); Potassium 4.7 mmol/L (3.4-5.1); Sodium 132 mmol/L (137-145)
[2023-08-21 10:23] LABS: TSH w/ Reflex to FT4 8.08 uIU/mL (0.47-4.68)
[2023-08-21 10:49] LABS: Free T4, Direct Thyroxine 1.38 ng/dL (0.78-2.19)
== END ==
PROVIDERS: PCP Family Medicine; Referring Provider Student in an Organized Health Care Education/Training Program; Visit Provider Student in an Organized Health Care Education/Training Program
DX: N05.9 Unspecified nephritic syndrome with unspecified morphologic changes (principal); D63.1 Anemia in chronic kidney disease; D70.9 Neutropenia, unspecified; R11.0 Nausea
CPT/HCPCS: 36415; 80048; 84439; 84443; 85014; 85018

== ENCOUNTER → 2023-08-23 11:26 | Outpatient (CLI) | payer OTHER, MEDICAID, SELFPAY ==
[2023-08-23 12:18] LABS: Hematocrit 26.9 % (41-53); Hemoglobin 9.3 g/dL (13.5-17.5)
[2023-08-23 12:35] LABS: BUN Creatinine Ratio 10.1 (6-22); Blood Urea Nitrogen 20 mg/dL (9-20); Calcium 9.5 mg/dL (8.4-10.2); Carbon Dioxide 24 mmol/L (22-32); Chloride 104 mmol/L (98-107); Estimated Glomerular Filt Rate 45 mL/min (>60); Glucose 101 mg/dL (70-100); HEMOLYSIS < 15 (0-50); Phosphorous 2.5 mg/dL (2.5-4.5); Potassium 4.2 mmol/L (3.4-5.1); Sodium 140 mmol/L (137-145)
[2023-08-25 10:47] LABS: Parathyroid Hormone Int 32 pg/mL (15-65)
== END ==
LOC: LAB 11:27
PROVIDERS: PCP Family Medicine; Referring Provider Student in an Organized Health Care Education/Training Program; Visit Provider Student in an Organized Health Care Education/Training Program
DX: N05.9 Unspecified nephritic syndrome with unspecified morphologic changes (principal); D70.9 Neutropenia, unspecified; D63.1 Anemia in chronic kidney disease; E83.30 Disorder of phosphorus metabolism, unspecified; N25.81 Secondary hyperparathyroidism of renal origin
CPT/HCPCS: 36415; 80048; 83970; 84100; 85014; 85018

== ENCOUNTER → 2023-08-24 12:08 | Outpatient (CLI) | payer OTHER, MEDICAID, SELFPAY ==
[2023-08-24 13:14] LABS: Hematocrit 29.2 % (41-53); Hemoglobin 9.9 g/dL (13.5-17.5)
[2023-08-24 13:15] LABS: BUN Creatinine Ratio 7.2 (6-22); Blood Urea Nitrogen 14 mg/dL (9-20); Calcium 9.8 mg/dL (8.4-10.2); Carbon Dioxide 23 mmol/L (22-32); Chloride 103 mmol/L (98-107); Estimated Glomerular Filt Rate 46 mL/min (>60); Glucose 135 mg/dL (70-100); HEMOLYSIS < 15 (0-50); Phosphorous 3.1 mg/dL (2.5-4.5); Potassium 4.3 mmol/L (3.4-5.1); Sodium 139 mmol/L (137-145)
[2023-08-29 09:48] LABS: Parathyroid Hormone Int 41 pg/mL (15-65)
== END ==
LOC: LAB 12:10
PROVIDERS: PCP Family Medicine; Referring Provider Student in an Organized Health Care Education/Training Program; Visit Provider Student in an Organized Health Care Education/Training Program
DX: N05.9 Unspecified nephritic syndrome with unspecified morphologic changes (principal); D70.9 Neutropenia, unspecified; D63.1 Anemia in chronic kidney disease; E83.30 Disorder of phosphorus metabolism, unspecified; N25.81 Secondary hyperparathyroidism of renal origin
CPT/HCPCS: 36415; 80048; 83970; 84100; 85014; 85018

== ENCOUNTER → 2023-10-10 13:15 | Outpatient (CLI) | payer OTHER, MEDICAID, SELFPAY ==
[2023-10-10 13:53] LABS: Hematocrit 35.6 % (41-53); Hemoglobin 12.1 g/dL (13.5-17.5)
[2023-10-10 17:37] LABS: BUN Creatinine Ratio 13.4 (6-22); Blood Urea Nitrogen 21 mg/dL (9-20); Calcium 9.6 mg/dL (8.4-10.2); Carbon Dioxide 29 mmol/L (22-32); Chloride 104 mmol/L (98-107); Estimated Glomerular Filt Rate 59 mL/min (>60); Glucose 97 mg/dL (70-100); HEMOLYSIS < 15 (0-50); Potassium 4.6 mmol/L (3.4-5.1); Sodium 139 mmol/L (137-145)
[2023-10-10 18:14] LABS: Ferritin 31 ng/mL (18-464)
[2023-10-11 01:54] LABS: HEMOLYSIS < 15 (0-50); Iron 49 ug/dL (49-181)
[2023-10-11 02:09] LABS: Percent Iron Saturation 15 % (20-50); Total Iron Binding Capacity 337 ug/dL (261-462); Transferrin 270 mg/dL (206-381)
[2023-10-13 07:38] LABS: Parathyroid Hormone Int 41 pg/mL (15-65)
== END ==
LOC: LAB 13:18
PROVIDERS: PCP Family Medicine; Referring Provider Student in an Organized Health Care Education/Training Program; Visit Provider Student in an Organized Health Care Education/Training Program
DX: N05.9 Unspecified nephritic syndrome with unspecified morphologic changes (principal); D50.0 Iron deficiency anemia secondary to blood loss (chronic); D70.9 Neutropenia, unspecified; N25.81 Secondary hyperparathyroidism of renal origin; R80.9 Proteinuria, unspecified
CPT/HCPCS: 36415; 80048; 82728; 83540; 83550; 83970; 85014; 85018

== ENCOUNTER 2024-02-26 07:29 | Emergency (ER) | payer OTHER, MEDICAID, SELFPAY ==
--- NOTE | 2024-02-26 07:39 | ED.GENADULT ---
HPI - General Adult General Chief complaint: Recheck/Abnormal Lab/Rx Stated complaint: kidney failure need levels checked Time Seen by Provider: 02/26/24 07:33 Source: patient, RN notes reviewed and old records reviewed Mode of arrival: Ambulatory Limitations: no limitations History of Present Illness HPI narrative: This is a 33-year-old male with history of end-stage renal disease was on dialysis for several months was stopped by his assisted living executive director, chronic fentanyl use who presents with request for labs to be drawn. Patient also notes he has several scabs in areas on his arms legs and face which he is concerned about. Patient states he was following regularly with nephrology but has not had his labs checked since October. He denies fevers or chills no chest pain, no shortness of breath he notes he gets quite fatigued with exertion. States he has had significant weight loss was 240 lb when he started dialysis in the hospital in his dropped to 140 lb. Patient states there was a significant water weight loss as well with his dialysis and treatment for his kidney disease. Patient states no nausea or vomiting, no issues with bowel movements. Patient notes he does have difficulty with urination, states sometimes it feels like he might be retaining but also states sometimes he does not have to urinate for 12 or 24 hours. He has found this to be a barrier to his goal of returning to rehab because he has difficulty giving a urine sample. Patient states he was on Eliquis for blood clot in his neck and arm was on it for several months. Ultimately stopped it was on medication for nerve pain as well, he states he was not on anything for blood pressure or any diabetes. Patient notes he was prediabetic as a child but was overweight as well. States he had a tunneled catheter placed in the right chest which has since been removed. He does use tobacco daily, denies any regular alcohol, uses fentanyl but does not inject. Denies other regular drug use. Was seeing Dr. Omer through [facility] for nephrology. Dr. Reese his primary care physician although he states he has not been going to see her. Related Data Home Medications Medication Instructions Recorded Confirmed apixaban 5 mg tablet 5 mg PO BID 08/03/23 08/16/23 bumetanide 2 mg tablet 2 mg PO DAILY 08/03/23 08/16/23 duloxetine 30 mg capsule,delayed 30 mg PO DAILY 08/03/23 08/16/23 release folic acid 1 mg tablet 1 mg PO DAILY 08/03/23 08/16/23 hydromorphone 2 mg tablet 2 mg PO Q6H 08/03/23 08/16/23 nicotine 14 mg/24 hr daily 1 patch transdermal DAILY 08/03/23 08/16/23 transdermal patch polyethylene glycol 3350 17 17 g PO DAILY 08/03/23 08/16/23 gram/dose oral powder sevelamer carbonate 800 mg tablet 800 mg PO TID 08/03/23 08/16/23 Previous Rx's Medication Instructions Recorded cyclobenzaprine 5 mg tablet 5 mg PO TID PRN muscle spasm #60 08/03/23 tabs ondansetron 4 mg disintegrating 4 mg PO Q8H PRN nausea and 08/03/23 tablet vomiting #60 tabs oxycodone 5 mg capsule 5 mg PO BID PRN pain #30 caps 08/03/23 albuterol sulfate 90 mcg/actuation 2 puff inhalation Q6H PRN 09/07/23 aerosol inhaler shortness of breath or wheezing #6.7 grams gabapentin 100 mg capsule 200 mg (2 x 100 mg) PO DAILY #60 10/04/23 caps mirtazapine 7.5 mg tablet 7.5 mg PO BEDTIME #30 tabs 10/20/23 mupirocin 2 % topical ointment 1 applic topical TID #22 grams 02/26/24 Allergies Allergy/AdvReac Type Severity Reaction Status Date / Time No Known Drug Allergies Allergy Verified 08/16/23 11:00 Review of Systems Review of Systems ROS Unobtainable: All systems reviewed & are unremarkable except as noted in HPI and below Patient History Medical History Chronic pain Accidental fentanyl overdose Dialysis patient CKD (chronic kidney disease) stage 4, GFR 15-29 ml/min Family History Mother Rheumatoid arthritis Social History Smoking Status: Current every day smoker Smoking Status: Current every day smoker Exam Narrative Exam Narrative: GEN: well nourished, male, alert and oriented x 3, patient appears to be in mild distress. HEENT: Atraumatic, pupils are equal round reactive to light, extraocular movements are intact, nares are clear, there is no conjunctival pallor. Throat is clear without any exudates, erythema, tonsillar enlargement or uvular deviation HEART: Regular rate and rhythm without murmur, clicks, rubs. No JVD. No edema bilateral lower or upper extremities. LUNGS:Lungs clear to auscultation, no wheezes, rales, crackles, chest moves symmetrically, no tachypnea accessory muscle use. ABD:bowel sounds normal, soft, non-tender, no guarding, rebound, rigidity, no masses noted, no hepatosplenomegaly :No CVA tenderness MSCL: Non-tender, no muscle atrophy, muscles strength 5/5 upper and lower extremities, full range of motion, normal gait NEURO:CN 2-12 intact, sensation normal. SKIN: Patient has areas of superficial ulceration with what appears to be excoriation with some scabbing particularly over the face, hands and forearms sparing the torso and back. None noted on the feet. There is no erythema or drainage, no foul odor. Initial Vital Signs Initial Vital Signs: Vital Signs Pulse Rate 101 H 02/26/24 07:48 Respiratory Rate 16 02/26/24 07:48 Blood Pressure 168/106 H 02/26/24 07:48 Pulse Oximetry 96 02/26/24 07:48 Oxygen Delivery Method Room Air 02/26/24 07:48 Course Orders Ordered: ED Orders 02/26/24 07:50 CBC Auto Diff [Complete Blood Count AUTO DIFF] Stat CMP [Comprehensive Metabolic Panel] Stat ETOH [Ethanol (ETOH)] Stat Lipase Stat 02/26/24 08:08 Consult to [employer] INSTALLER - Marina Manager Stat 02/26/24 09:06 UA Complete [Urinalysis and Microscopic] Stat Urine Drug Screen, Rapid Stat Vital Signs Vital signs: Vital Signs - 8 hr 02/26/24 07:48 02/26/24 08:02 02/26/24 08:30 Temperature 98.6 F Pulse Rate 101 H 95 H 103 H Respiratory Rate 16 14 Blood Pressure 168/106 H Pulse Oximetry 96 99 97 Oxygen Delivery Method Room Air Room Air 02/26/24 08:45 02/26/24 08:45 02/26/24 10:08 Temperature Pulse Rate 97 H 72 Respiratory Rate 20 Blood Pressure 130/83 153/90 H Pulse Oximetry 100 100 Oxygen Delivery Method Room Air Medical Decision Making Lab Data 02/26/24 07:50 02/26/24 07:50 Labs: Lab Results 02/26/24 02/26/24 02/26/24 Range/Units 07:50 09:06 09:06 WBC 10.1 (4.5-11.0) X10^3/uL RBC 3.99 L (4.5-5.9) X10^6/uL Hgb 12.3 L (13.5-17.5) g/dL Hct 35.1 L (41-53) % MCV 88.0 (80-100) fL MCH 30.9 (26-34) PG MCHC 35.0 (30-36) % RDW 13.9 (11.6-14.8) % Plt Count 417 H (150-400) X10^3/uL Neut % (Auto) 71.8 (50-75) % Lymph % (Auto) 20.8 L (25-40) % [place] % (Auto) 5.8 (3-14) % Eos % (Auto) 0.6 L (2-4) % Baso % (Auto) 1.0 (0-2) % Neut # (Auto) 7200 H (5003-9540) /uL Lymph # (Auto) 2100 (1379-5797) /uL [place] # (Auto) 600 (0-900) /uL Eos # (Auto) 100 (0-450) /uL Baso # (Auto) 100 (0-100) /uL Sodium 137 (137-145) mmol/L Potassium 4.6 (3.4-5.1) mmol/L Chloride 104 (98-107) mmol/L Carbon Dioxide 23 (22-32) mmol/L BUN 24 H (9-20) mg/dL Creatinine 1.92 H (0.66-1.25) mg/dL Estimated GFR 46 L (>60) mL/min BUN/Creatinine Ratio 12.5 (6-22) Glucose 112 H (70-100) mg/dL Calcium 9.6 (8.4-10.2) mg/dL Total Bilirubin 0.7 (0.2-1.3) mg/dL AST 19 (17-59) IU/L ALT 13 (<50) IU/L Alkaline Phosphatase 63 (38-126) U/L Total Protein 7.8 (6.3-8.2) g/dL Albumin 4.4 (3.5-5.0) g/dL Globulin 3.4 (1.7-4.1) g/dL Albumin/Globulin Ratio 1.3 (1.0-2.8) Lipase 28 (23-300) U/L Urine Color Yellow Urine Appearance Clear Urine pH 6.0 Normal (4.5-8.0) Ur Specific [place] 1.025 (1.000-1.035) Urine Protein Trace H (Negative) Urine Glucose (UA) Negative (Negative) g/dL Urine Ketones Negative (NEGATIVE) Urine Occult Blood Negative (Negative) Urine Nitrate Negative (Negative) Urine Bilirubin Negative (NEGATIVE) Urine Urobilinogen 0.2 (0.2) E.U./dL Ur Leukocyte Esterase Negative (NEGATIVE) Urine RBC None seen (0-5/HPF) Urine WBC 0-1/hpf (0-5/HPF) Ur Squamous Epith Cells None seen (0-5/HPF) Urine Bacteria None seen (None) Hyaline Casts 1-5/lpf (None) Ur Culture Indicated? Cult not indicated Vol Urine Centrifuged 10ml (spun) U Opiates 300ng/mL cut Positive H (Negative) Ur Oxycodone Screen Negative (Negative) Urine Methadone Screen Negative (Negative) Ur Barbiturates Screen Negative (Negative) U Tricyclic Antidepress Negative (Negative) Ur Phencyclidine Scrn Negative (Negative) Ur Amphetamines Screen Positive H (Negative) U Methamphetamines Scrn Positive H (Negative) Ur MDMA Scrn (Ecstasy) Negative (Negative) U Benzodiazepines Scrn Negative (Negative) Urine Cocaine Screen Negative (Negative) U Marijuana (THC) Screen Negative (Negative) Urine Specific [place] Normal (Normal) Ethyl Alcohol < 10 ( - 10) mg/dL Ur Creatinine Normal (Normal) [facility] Narrative Medical decision making narrative: 33-year-old male with chronic kidney disease stage 4 with prior dialysis for several months and chronic fentanyl use who presents with request for labs has not had them check since October. Patient notes he has sometimes not make your in for 12 or 24 hours. Notes some fatigue but no other symptoms besides skin changes on his face and extremities which seem most consistent with picking. Patient states he does not inject none of them appear infected but he was areas of superficial ulceration over his face and extremities. Patient expresses interest in outpatient rehab, [facility] in particular. Labs show white count of 10 hemoglobin of 12.3 platelets of 417. Sodium is 137 potassium is 4.6 chloride 104 CO2 is 23 with BUN 24, creatinine 1.92 glucose of 112 LFTs are normal. ETOH is less than 10. UA shows trace protein, 1 white cell, 1 hyaline cast. Tox positive for opiates as well as amphetamines and methamphetamines. Reviewed patient's labs, he states he will try to reestablish with his assisted living executive director or 1 other partners. Patient reviewed all of his findings from today we will give a prescription for topical mupirocin, continue with wound care. Lesions are only locally on the face and arms and appear to be more consistent with excoriation. Discussed with patient he prefers to be discharged rather than waiting to talk to a pediatric social worker who will not be here to later this morning. Discharge Plan Departure Patient Disposition: Home Clinical Impression: CKD (chronic kidney disease) stage 4, GFR 15-29 ml/min Activity Restrictions/Additional Instructions: Your labs overall appears stable you are slightly anemic hemoglobin of 12, your creatinine today is 1.92 consistent with August of 2023 slightly up from October 2023. Your electrolytes are normal. A copy of your labs is included with our discharge. Prescription for bacitracin was sent you can apply this over the open areas on your skin. Avoid touching scratching or picking at them. Prescription sent to [facility] in [place]. I do recommend that you follow-up to make sure established with a assisted living executive director either at [facility] or if you prefer there are options in [place] and [facility] in [place]. If you develop fevers, signs of infection or other new skin changes, lightheadedness or passing out, persistent vomiting, chest pain or shortness of breath, new swelling of your extremities or decreasing urine output please return for re-evaluation. Prescriptions: New mupirocin 2 % ointment 1 applic topical TID Qty: 22 0RF No Action apixaban 5 mg tablet 5 mg PO BID bumetanide 2 mg tablet 2 mg PO DAILY duloxetine 30 mg capsule,delayed release(DR/EC) 30 mg PO DAILY folic acid 1 mg tablet 1 mg PO DAILY hydromorphone 2 mg tablet 2 mg PO Q6H nicotine 14 mg/24 hr patch 24 hour 1 patch transdermal DAILY polyethylene glycol 3350 17 gram/dose powder 17 g PO DAILY sevelamer carbonate 800 mg tablet 800 mg PO TID Rx Instructions: must administer with a meal/food ondansetron 4 mg tablet,disintegrating 4 mg PO Q8H PRN (Reason: nausea and vomiting) Qty: 60 0RF cyclobenzaprine 5 mg tablet 5 mg PO TID PRN (Reason: muscle spasm) Qty: 60 0RF oxycodone 5 mg capsule 5 mg PO BID PRN (Reason: pain) Qty: 30 0RF albuterol sulfate 90 mcg/actuation HFA aerosol inhaler 2 puff inhalation Q6H PRN (Reason: shortness of breath or wheezing) Qty: 6.7 3RF gabapentin 100 mg capsule 200 mg PO DAILY Qty: 60 2RF mirtazapine 7.5 mg tablet 7.5 mg PO BEDTIME Qty: 30 0RF Referrals: Nolvia Ramos MD [Primary Care Provider] - Stand Alone Forms: Patient Portal/API
[2024-02-26 07:48] VITALS: BP 168/106; PULSE 101; RESP 16; O2SAT 96; BMI 21.4
[2024-02-26 08:02] VITALS: PULSE 95; RESP 14; TEMP 37; O2SAT 99
[2024-02-26 08:06] LABS: Add Manual Diff / Slide Review NO; Basophils Absolute Auto 100 /uL (0-100); Eosinophils Absolute Auto 100 /uL (0-450); Eosinophils Percent Auto 0.6 % (2-4); Hematocrit 35.1 % (41-53); Hemoglobin 12.3 g/dL (13.5-17.5); Lymphocytes Absolute Auto 2100 /uL (1100-4500); Lymphocytes Percent Auto 20.8 % (25-40); Mean Corpuscular Hemoglobin 30.9 PG (26-34); Monocytes Absolute Auto 600 /uL (0-900); Monocytes Percent Auto 5.8 % (3-14); Neutrophils Absolute Auto 7200 /uL (1500-7000); Neutrophils Percent Auto 71.8 % (50-75); Platelet Count 417 X10^3/uL (150-400); Red Blood Cell Count 3.99 X10^6/uL (4.5-5.9); Red Cell Distribution Width 13.9 % (11.6-14.8); White Blood Cell Count 10.1 X10^3/uL (4.5-11.0)
[2024-02-26 08:15] LABS: Alanine Aminotransferase 13 IU/L (<50); Albumin 4.4 g/dL (3.5-5.0); Albumin Globulin Ratio 1.3 (1.0-2.8); Alkaline Phosphatase 63 U/L (38-126); Aspartate Aminotransferase 19 IU/L (17-59); BUN Creatinine Ratio 12.5 (6-22); Bilirubin Total 0.7 mg/dL (0.2-1.3); Blood Urea Nitrogen 24 mg/dL (9-20); Calcium 9.6 mg/dL (8.4-10.2); Carbon Dioxide 23 mmol/L (22-32); Chloride 104 mmol/L (98-107); Estimated Glomerular Filt Rate 46 mL/min (>60); Globulin 3.4 g/dL (1.7-4.1); Glucose 112 mg/dL (70-100); HEMOLYSIS 19 (0-50); Lipase 28 U/L (23-300); Potassium 4.6 mmol/L (3.4-5.1); Sodium 137 mmol/L (137-145); Total Protein 7.8 g/dL (6.3-8.2)
--- NOTE | 2024-02-26 08:24 | PC.NURSE ---
multiple skin abrasions over body
[2024-02-26 08:30] VITALS: PULSE 103; O2SAT 97
[2024-02-26 08:31] LABS: Ethanol (ETOH) < 10 mg/dL
[2024-02-26 08:45] VITALS: BP 130/83; PULSE 97; O2SAT 100
[2024-02-26 09:20] LABS: Appearance Urine UA CLEAR; Bilirubin Urine UA NEGATIVE (NEGATIVE); Color Urine UA YELLOW; Glucose Urine UA NEGATIVE (Negative); Ketones Urine UA NEGATIVE (NEGATIVE); Leukocyte Esterase Urine UA NEGATIVE (NEGATIVE); Nitrite Urine UA NEGATIVE (Negative); Occult Blood Urine UA NEGATIVE (Negative); Protein Urine UA TRACE (Negative); Specific Gravity Urine UA 1.025 (1.000-1.035); Urobilinogen Urine UA 0.2 E.U./dL (0.2)
[2024-02-26 09:25] LABS: Ur Creatinine Normal (Normal); Ur Specific Gravity Normal (Normal); Urine pH Normal (Normal)
[2024-02-26 09:26] LABS: Urine Amphetamines Positive (Negative); Urine Barbiturates Negative (Negative); Urine Benzodiazepines Negative (Negative); Urine Cocaine Negative (Negative); Urine MDMA Negative (Negative); Urine Methadone Negative (Negative); Urine Methamphetamines Positive (Negative); Urine Opiates Positive (Negative); Urine Oxycodone Negative (Negative); Urine Phencyclidine Negative (Negative); Urine THC Negative (Negative); Urine Tricyclic Antidepressant Negative (Negative)
[2024-02-26 09:40] LABS: Bacteria Urine None Seen; Culture Indicated Urine Cult Not Indicated; Hyaline Casts Urine 1-5/LPF; RBC Urine None Seen (0-5/HPF); Squamous Epithelial Cell Urine None Seen (0-5/HPF); Urine Volume 10mL (spun); WBC Urine 0-1/HPF (0-5/HPF)
[2024-02-26 10:08] VITALS: BP 153/90; PULSE 72; RESP 20; O2SAT 100
--- NOTE | 2024-02-26 13:22 | CM.SWNOTE ---
ED PARKING LOT LABORER Follow up Note: Patient is a 33yo male, resident of [place], presented to the ED this morning requesting for blood levels to be checked and skin issues to be assessed. Patient has a previous medical history of Stage 4 chronic kidney disease and was on dialysis in the past (seeing a finished goods planner at [facility]). Patient stopped all medical treatment due to relapsing on fentanyl. PARKING LOT LABORER was consulted as pt expressed an interest in outpatient rehab. PARKING LOT LABORER reviewed chart and discussed pt with ED Provider. Per provider, pt had stated a preference for [facility] for outpatient treatment. Patient's primary care provider is Dr. Nolvia Mckeon and his insurance is [facility] and Medicaid. PARKING LOT LABORER called patient, introduced self and role. Patient sounded very interested in treatment and stated they got that covered regarding treatment at [facility] as they now have their labs from their ED visit; declined any other referral for [facility] treatment. PARKING LOT LABORER discussed re-establishing care with his PCP, PARKING LOT LABORER offered to assist with coordinating a follow up appointment. Patient has follow up appointment with PCP on , 03/07 at 10:30am. Patient appreciative. PARKING LOT LABORER encouraged patient to follow up with PCP and discuss nephrology referral. Pt verbalized understanding. Plan: Patient to follow up with PCP and re-establish with a finished goods planner for CKD. Patient to also re-establish outpatient treatment at [facility], possibly [facility]. PAULA Samuel
== END 2024-02-26 10:16 | disposition home or self-care (01) ==
PROVIDERS: Emergency Provider Emergency Medicine; PCP Family Medicine
DX: N18.4 Chronic kidney disease, stage 4 (severe) (principal)
CPT/HCPCS: 36415; 80053; 80305; 80320; 81001; 83690; 85025; 99283

== ENCOUNTER 2024-04-09 17:58 | Emergency (ER) | payer OTHER, MEDICAID, SELFPAY ==
[2024-04-09 18:18] VITALS: BP 126/85; PULSE 119; RESP 20; TEMP 37.2; O2SAT 90; BMI 20.2
--- NOTE | 2024-04-09 18:28 | DI.RAD.S_ITS ---
PROCEDURE: XR CHEST 2V INDICATIONS: low oxygen; pneumonia? TECHNIQUE: 2 views of the chest were acquired. COMPARISON: None. FINDINGS: Surgical changes and devices: None. Lungs and pleura: Patchy bibasilar opacities more pronounced on the right. No pleural effusions or pneumothorax. Mediastinum: Mediastinal contours are normal. Heart size is normal. Bones and chest wall: No suspicious bony abnormalities. Soft tissues appear unremarkable. IMPRESSION: Patchy bibasilar opacities may represent multifocal pneumonia. Findings are more pronounced on the right. Recommend follow up chest radiograph 4-6 weeks after treatment to document resolution of findings and/or return to baseline examination. Dictated by: Jose A De Anda M.D. on 04/09/2024 at 21:13 Approved by: Jose A De Anda M.D. on 04/09/2024 at 21:13
[2024-04-09 19:00] LABS: Add Manual Diff / Slide Review NO; Basophils Absolute Auto 100 /uL (0-100); Basophils Percent Auto 0.5 % (0-2); Eosinophils Absolute Auto 0 /uL (0-450); Eosinophils Percent Auto 0.1 % (2-4); Hematocrit 37.6 % (41-53); Hemoglobin 12.9 g/dL (13.5-17.5); Lymphocytes Absolute Auto 1700 /uL (1100-4500); Lymphocytes Percent Auto 8.9 % (25-40); Mean Corpuscular HGB Conc 34.3 % (30-36); Mean Corpuscular Volume 87.3 fL (80-100); Monocytes Absolute Auto 1200 /uL (0-900); Monocytes Percent Auto 6.5 % (3-14); Neutrophils Absolute Auto 15900 /uL (1500-7000); Platelet Count 354 X10^3/uL (150-400); Red Blood Cell Count 4.31 X10^6/uL (4.5-5.9); White Blood Cell Count 18.9 X10^3/uL (4.5-11.0)
--- NOTE | 2024-04-09 19:05 | ED_ITS ---
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 States he does not history of some asthma and feels tight in his chest. Denies any fevers that he is of. But he states he has felt warm. Denies any nausea or vomiting. No abdominal back flank pain. No new swelling of extremities. He was quite concerned about rash on his extremities which she was treated initially topical antibiotic without improvement and then starting oral course of antibiotics which improved it but then it returned. He states he has not skin picking. States he has not on any prescription medications currently. Does have a history of a tunneled cath on the right chest which has since been removed. Denies regular tobacco use, denies any regular alcohol, uses fentanyl states that he smokes it. Was seen Dr. Omer for nephrology at [facility]. Related Data Previous Rx's Medication Instructions Recorded mupirocin 2 % topical ointment 1 applic topical TID #22 grams 02/26/24 mupirocin 2 % topical ointment 1 applic topical TID MRSA #44 grams 03/09/24 albuterol sulfate 90 mcg/actuation 2 puff inhalation Q4-6H PRN 04/09/24 aerosol inhaler shortness of breath or wheezing #6.7 grams prednisone 10 mg tablets in a dose See Rx Instructions PO .COMPLEX 04/09/24 pack #21 ea doxycycline hyclate 100 mg tablet 100 mg PO BID #20 tabs 04/10/24 Allergies Allergy/AdvReac Type Severity Reaction Status Date / Time No Known Drug Allergies Allergy Verified 04/09/24 18:18 Review of Systems Review of Systems ROS Unobtainable: All systems reviewed & are unremarkable except as noted in HPI and below Patient History Medical History Chronic pain Accidental fentanyl overdose Dialysis patient CKD (chronic kidney disease) stage 4, GFR 15-29 ml/min Family History Mother Rheumatoid arthritis Social History Smoking Status: Current every day smoker Smoking Status: Current every day smoker tobacco type: cigarettes Substance Use Type: opiates, painkillers, inhalants, IV drugs and prescription drug Exam Narrative Exam Narrative: GENERAL: Alert and oriented x three, thin male mild distress. HEENT: Head normocephalic, atraumatic, EOMI, pupils reactive, face symmetric, moist mucous membranes NECK: Supple, full range of motion CARDIOVASCULAR: Regular rate and rhythm without murmurs, rubs or gallops. No JVD. No edema bilateral lower extremities. RESPIRATORY: Breath sounds decreased bilaterally, no crackles wheezes or rales. Positive for tachypnea. No accessory muscle use other than MICHAELA. No subcostal or intercostal use. Patient is leaning back in the bed. ABDOMEN: Soft, nontender. Normoactive bowel sounds all 4 quadrants. No guarding or rebound, rigidity, no mass : No CVA tenderness EXTREMITIES: Normal range of motion, no clubbing or edema. Neurovascularly intact NEUROLOGICAL: Cranial nerves II through XII grossly intact. Moving all extremities SKIN: Warm, dry, no petechiae, patient has areas of healing what appears to be scabs on his extremities. Initial Vital Signs Initial Vital Signs: Vital Signs Temperature 99 F 04/09/24 18:18 Pulse Rate 119 H 04/09/24 18:18 Respiratory Rate 20 04/09/24 18:18 Blood Pressure 126/85 04/09/24 18:18 Pulse Oximetry 90 L 04/09/24 18:18 Oxygen Delivery Method Room Air 04/09/24 18:18 Course Orders Ordered: Discontinued Medications Albuterol (Albuterol 2.5 Mg/3 Ml Neb (Adult)) 5 mg INH NOW ONE Stop: 04/09/24 19:06 Last Admin: 04/09/24 19:53 Dose: 5 mg Documented By: ALBERT Albuterol/Ipratropium (Albuterol/Ipratropium 3 Ml Ampul) 3 ml INH NOW ONE Stop: 04/09/24 19:05 Last Admin: 04/09/24 19:52 Dose: 3 ml Documented By: ALBERT Methylprednisolone (Methylprednisolone 125 Mg/2 Ml Vial) 125 mg IV NOW ONE Stop: 04/09/24 19:05 Last Admin: 04/09/24 19:51 Dose: 125 mg Documented By: CAITLYN Ondansetron HCl (Ondansetron 4 Mg/2 Ml Inj) 4 mg IV NOW PRN PRN Reason: Nausea And Vomiting Ondansetron HCl (Ondansetron 4 Mg Odt) 4 mg SL NOW PRN PRN Reason: Nausea And Vomiting Vital Signs Vital signs: Vital Signs - 8 hr 04/09/24 18:18 04/09/24 19:41 04/09/24 19:56 Temperature 99 F Pulse Rate 119 H 100 H Respiratory Rate 20 16 Blood Pressure 126/85 Pulse Oximetry 90 L 93 97 Oxygen Delivery Method Room Air Nasal Cannula Nasal Cannula Oxygen Flow Rate 4 4 Fraction of Inspired Oxygen 36 MDM - SOB/Dyspnea Lab Data 04/09/24 18:42 04/09/24 18:42 Labs: Lab Results 04/09/24 Range/Units 18:42 WBC 18.9 H (4.5-11.0) X10^3/uL RBC 4.31 L (4.5-5.9) X10^6/uL Hgb 12.9 L (13.5-17.5) g/dL Hct 37.6 L (41-53) % MCV 87.3 (80-100) fL MCH 30.0 (26-34) PG MCHC 34.3 (30-36) % RDW 14.0 (11.6-14.8) % Plt Count 354 (150-400) X10^3/uL Neut % (Auto) 84.0 H (50-75) % Lymph % (Auto) 8.9 L (25-40) % [place] % (Auto) 6.5 (3-14) % Eos % (Auto) 0.1 L (2-4) % Baso % (Auto) 0.5 (0-2) % Neut # (Auto) 06362 H (4157-5479) /uL Lymph # (Auto) 1700 (4217-6892) /uL [place] # (Auto) 1200 H (0-900) /uL Eos # (Auto) 0 (0-450) /uL Baso # (Auto) 100 (0-100) /uL PT 12.0 (9.4-12.5) SECONDS INR 1.0 (0.9-1.3) APTT 30 (25.1-36.5) SECONDS Sodium 133 L (137-145) mmol/L Potassium 4.8 (3.4-5.1) mmol/L Chloride 101 (98-107) mmol/L Carbon Dioxide 21 L (22-32) mmol/L BUN 32 H (9-20) mg/dL Creatinine 1.24 (0.66-1.25) mg/dL Estimated GFR > 60 (>60) mL/min BUN/Creatinine Ratio 25.8 H (6-22) Glucose 131 H (70-100) mg/dL Lactate 1.3 (0.7-2.1) mmol/L Calcium 9.0 (8.4-10.2) mg/dL Total Bilirubin 1.0 (0.2-1.3) mg/dL AST 26 (17-59) IU/L ALT 21 (<50) IU/L Alkaline Phosphatase 51 (38-126) U/L Total Protein 7.9 (6.3-8.2) g/dL Albumin 4.4 (3.5-5.0) g/dL Globulin 3.5 (1.7-4.1) g/dL Albumin/Globulin Ratio 1.3 (1.0-2.8) Lipase 42 (23-300) U/L Procalcitonin 0.095 (<0.5) ng/mL Chlamy pneumoniae PCR Not detected (Not Detect) Adenovirus (PCR) Not detected (Not Detect) B. pertussis DNA (PCR) Not detected (Not Detect) B.parapertussis DNA PCR Not detected (Not Detecte) Coronavirus OC43 (PCR) Not detected (Not Detect) Coronavirus HKU1 (PCR) Not detected (Not Detect) Coronavirus 229E (PCR) Not detected (Not Detect) SARS-CoV-2 (PCR) Not detected (Not Detecte) Coronavirus NL63 (PCR) Not detected (Not Detect) Human Metapneumovir PCR Not detected (Not Detect) Influenza Type A (PCR) Not detected (Not Detect) Influenza Type B (PCR) Not detected (Not Detect) M. pneumoniae (PCR) Not detected (Not Detect) Parainfluenza 1 (PCR) Not detected (Not Detect) Parainfluenza 2 (PCR) Not detected (Not Detect) Parainfluenza 3 (PCR) Not detected (Not Detect) Parainfluenza 4 (PCR) Not detected (Not Detect) RSV (PCR) Not detected (Not Detect) Entero/Rhino (PCR) Detected H (Not Detect) Urine Dip Bedside Urine Glucose Negative Bedside Urine Bilirubin - Negative Bedside Urine Ketone - Negative Urine Specific [place] 1.025 Bedside Urine Occult Blood - Negative Bedside Urine pH 6.0 Bedside Urine Protein +/- 15 Bedside Urine Urobilinogen - Negative Bedside Urine Nitrite - Negative Bedside Urine Leukocytes - Negative Esterase MDM Narrative Medical decision making narrative: Labs show white count 18.9 hemoglobin of 12.9, platelets of 354, predominance of neutrophils. Chemistry shows sodium 133 potassium 4.8 chloride 101 CO2 of 21 BUN 32 creatinine 1.24 glucose of 131 lactate 1.3 LFTs are negative, procalcitonin 0.095. Chest x-ray is pending CT angio is pending Respiratory panel shows entero/rhinovirus Patient received nebs felt improvement in breathing. Also received Solu-Medrol. Attempting to wean down oxygen as patient would like to be discharged. Patient is not willing to wait for a CT angio, have not weaned off oxygen but he states he feels much better he is ambulating in the department comfortably. We will send script for steroids and albuterol to the local [facility] he understands that it is closed currently. He understands he can return at any time. Patient expresses understanding. He is quite anxious to go he states that he does not wish to stay. Chest x-ray showed patchy bibasilar opacities could represent multifocal pneumonia more pronounced on the right. CT angio of the chest was obtained with patient's history of drug use, hypoxia and showed no acute PE innumerable small tree in bud opacities noted bilateral lower lobes and right middle lobe with associated perihilar airway thickening compatible with infectious or inflammatory process but atypical/mycobacterial organisms favored recommend short interval chest CT then a proximally 3 months to document resolution. Patient had had albuterol and steroids sent in the pharmacy we will send a prescription and attempted to reach out to the patient by phone.. Discharge Plan Departure Patient Disposition: Left Against Medical Advice Clinical Impression: Rhinovirus infection, Low O2 saturation Activity Restrictions/Additional Instructions: You do have a viral infection from your workup that maybe the source of your symptoms but your CT angio is pending have not been able to rule out blood clots, pneumonia or other major changes to your heart and lungs. You are also requiring oxygen currently it was not recommended that you leave the hospital currently. You can return at any time for re-evaluation and treatment. Prescriptions: New albuterol sulfate 90 mcg/actuation HFA aerosol inhaler 2 puff inhalation Q4-6H PRN (Reason: shortness of breath or wheezing) Qty: 6.7 0RF prednisone 10 mg tablets,dose pack See Rx Instructions .ROUTE .COMPLEX Qty: 21 0RF Rx Instructions: 6 tabs p.o. x1 day, then 5 tabs p.o. x1 day, then 4 tablets p.o. x1 day, then 3 tabs p.o. x1 day, then 2 tabs p.o. x1 day, then 1 tab p.o. x1 day doxycycline hyclate 100 mg tablet 100 mg PO BID Qty: 20 0RF No Action mupirocin 2 % ointment 1 applic topical TID Qty: 44 0RF mupirocin 2 % ointment 1 applic topical TID Qty: 22 0RF Referrals: Miscellaneous,Doctor, MD [Primary Care Provider] - Stand Alone Forms: Patient Portal/API, Against Medical Advice
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
[2024-04-09 19:10] LABS: PTT Partial Thromboplastin Tim 30 SECONDS (25.1-36.5)
[2024-04-09 19:11] LABS: Alanine Aminotransferase 21 IU/L (<50); Albumin 4.4 g/dL (3.5-5.0); Albumin Globulin Ratio 1.3 (1.0-2.8); Alkaline Phosphatase 51 U/L (38-126); Aspartate Aminotransferase 26 IU/L (17-59); BUN Creatinine Ratio 25.8 (6-22); Blood Urea Nitrogen 32 mg/dL (9-20); Carbon Dioxide 21 mmol/L (22-32); Chloride 101 mmol/L (98-107); Estimated Glomerular Filt Rate > 60 mL/min (>60); Globulin 3.5 g/dL (1.7-4.1); Glucose 131 mg/dL (70-100); HEMOLYSIS 107 (0-50); Lipase 42 U/L (23-300); Potassium 4.8 mmol/L (3.4-5.1); Sodium 133 mmol/L (137-145); Total Protein 7.9 g/dL (6.3-8.2)
[2024-04-09 19:12] LABS: Lactate (Lactic Acid) 1.3 mmol/L (0.7-2.1)
[2024-04-09 19:28] LABS: Procalcitonin 0.095 ng/mL (<0.5)
[2024-04-09 19:41] VITALS: O2SAT 93
[2024-04-09] MEDS: methylPREDNISolone 125 MG/2 ML VIAL IV (19:51)
[2024-04-09] MEDS: ALBUTEROL/IPRATROPIUM 3 ML AMPUL INH (19:52)
[2024-04-09] MEDS: ALBUTEROL 2.5 MG/3 ML NEB (ADULT) 5 MG INH (19:53)
[2024-04-09 19:56] VITALS: BP 140/80; PULSE 100; PULSE 104; RESP 16; RESP 21; O2SAT 96; O2SAT 97
[2024-04-09 20:00] VITALS: BP 138/85; PULSE 110; RESP 20; O2SAT 97
[2024-04-09 20:12] LABS: Adenovirus Not Detected (Not Detect); B. parapertussis Not Detected (Not Detecte); Bordetella pertussis Not Detected (Not Detect); Chlamydophila pneumoniae Not Detected (Not Detect); Coronavirus 229E Not Detected (Not Detect); Coronavirus HKU1 Not Detected (Not Detect); Coronavirus NL 63 Not Detected (Not Detect); Coronavirus OC43 Not Detected (Not Detect); Human Metapneumovirus Not Detected (Not Detect); Human Rhinovirus/Enterovirus Detected (Not Detect); Influenza A Not Detected (Not Detect); Influenza B Not Detected (Not Detect); Mycoplasma pneumoniae Not Detected (Not Detect); Parainfluenza Virus 1 Not Detected (Not Detect); Parainfluenza Virus 2 Not Detected (Not Detect); Parainfluenza Virus 3 Not Detected (Not Detect); Parainfluenza Virus 4 Not Detected (Not Detect); Respiratory Syncytial Virus Not Detected (Not Detect); SARS- CoV-2 Not Detected (Not Detecte)
--- NOTE | 2024-04-09 20:35 | PC.NURSE ---
2024: patient seen getting out of [facility] and pulling off his tele leads. This nurse approached the patient and pt states I need to leave right now, I want to go. patient states he does not want to stay here any longer no matter the risk. Dr. Chin informed immediately and Dr. Chin in room at 2028 with AMA papers. PIV removed by this nurse. Patient declined last set of vitals. Patient ambulated out with a steady gait.
== END 2024-04-09 20:29 | disposition left against medical advice (07) ==
PROVIDERS: Emergency Medicine; Emergency Provider Emergency Medicine
DX: B34.8 Other viral infections of unspecified site (principal); R09.02 Hypoxemia; Z53.29 Procedure and treatment not carried out because of patient's decision for other reasons
CPT/HCPCS: 71046; 71275; 80053; 81003; 83605; 83690; 84145; 85025; 85610; 85730; 87040; 87633; 94640; 96374; 99284; J2919; J7613; Q9967

== ENCOUNTER 2024-04-24 16:19 | Emergency (ER) | payer MEDICAID, OTHER, SELFPAY ==
[2024-04-24] VITALS (7 sets, daily range): BP systolic 111–120; BP diastolic 61–78; PULSE 78–94; RESP 17; TEMP 36.6; O2SAT 97–99; BMI 19.2
--- NOTE | 2024-04-24 17:15 | PC.NURSE ---
Pt posterior lung sounds are clear and equal bilaterally. He is A&Ox4. His eyes are 1mm, equal and reactive. He complains of pain to his left forehead, right knee and mid back. Pt is able to ambulate without difficulty. He is pink, warm and dry. Pt has many scabs in various degrees of healing on his face and bilateral arms. Pt is concerned for staph infection and reports hx of the same. Call light is within reach and encouraged to use for needs. Blankets provided.
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
== END 2024-04-24 19:19 | disposition home or self-care (01) ==
PROVIDERS: Emergency Provider Emergency Medicine
DX: M54.50 Low back pain, unspecified (principal); V89.2XXA Person injured in unspecified motor-vehicle accident, traffic, initial encounter
CPT/HCPCS: 99281

== ENCOUNTER → 2024-07-04 13:19 | Outpatient (CLI) | payer OTHER, SELFPAY | PROVIDERS: Visit Provider Nurse Practitioner Family | DX: L08.9 Local infection of the skin and subcutaneous tissue, unspecified (principal) | CPT/HCPCS: 87070; 87077; 87147; 87186; 87205 ==

== ENCOUNTER 2025-04-22 14:43 | Emergency (ER) | payer OTHER, SELFPAY ==
[2025-04-22 15:05] VITALS: BP 139/93; PULSE 93; RESP 17; TEMP 36.3; O2SAT 97; BMI 25.4
[2025-04-22 18:09] VITALS: BP 144/72; PULSE 96; RESP 16; TEMP 36.5; O2SAT 97
--- NOTE | 2025-04-22 18:21 | PC.NURSE ---
Pt has multiple lesions on face and back, as well as hands/arms and other parts of his body. 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 Pt reports his wounds have been draining on his face and back. Pt states his facial lesions have been draining fluid that looks like blood but smells really bad. No drainage noted by this RN at this time. His back wounds are visibly crusted over with a layer of dried yellow drainage. Pt reports he also took 2 remaining pills from an unfinished antibiotic (pt states this was amoxicillin) for an ear infection to try to help his skin.
--- NOTE | 2025-04-22 19:02 | ED.SKABFB ---
HPI - Skin/Abscess/Foreign Bdy General Chief complaint: Skin/Abscess/Foreign Body Stated complaint: Per pt MRSA Time Seen by Provider: 04/22/25 18:51 Source: patient Mode of arrival: Ambulatory Limitations: no limitations History of Present Illness HPI narrative: 34-year-old male history of fentanyl use, prior history of CKD who presents with complaint of multiple infections of his skin particularly of his neck, arms and upper back. Patient states he has had this issue in the past he typically responds to doxycycline. He has had MRSA in the past. He denies fevers or chills. No chest pain or shortness of breath. No nausea or vomiting. No other GI or urinary symptoms. No new swelling in extremities. Syncope. Patient states he has also had mupirocin topically which has been helpful. He has not had any abscesses that he appreciates. States that he was sober for a period of time but has recently started reusing fentanyl. He denies any skin picking. He is accompanied by his mother. Related Data Previous Rx's ?Medication ?Instructions ?Recorded mupirocin 2 % topical ointment 1 applic topical TID #22 grams 02/26/24 mupirocin 2 % topical ointment 1 applic topical TID MRSA #44 grams 03/09/24 albuterol sulfate 90 mcg/actuation 2 puff inhalation Q4-6H PRN 04/09/24 aerosol inhaler shortness of breath or wheezing #6.7 grams prednisone 10 mg tablets in a dose See Rx Instructions PO .COMPLEX 04/09/24 pack #21 ea doxycycline hyclate 100 mg tablet 100 mg PO BID #20 tabs 04/10/24 mupirocin 2 % topical ointment 1 applic topical TID #22 grams 07/04/24 doxycycline hyclate 100 mg capsule 100 mg PO BID #20 caps 07/06/24 doxycycline hyclate 100 mg tablet 100 mg PO BID #20 tabs 04/22/25 mupirocin 2 % topical ointment 1 applic topical BID #22 grams 04/22/25 Allergies Allergy/AdvReac Type Severity Reaction Status Date / Time No Known Drug Allergies Allergy Verified 04/22/25 15:05 Review of Systems Review of Systems ROS Unobtainable: All systems reviewed & are unremarkable except as noted in HPI and below Patient History Medical History Chronic pain Accidental fentanyl overdose Dialysis patient CKD (chronic kidney disease) stage 4, GFR 15-29 ml/min Family History Mother Rheumatoid arthritis Social History Smoking Status: Current some day smoker Smoking Status: Current some day smoker tobacco type: cigarettes Exam Narrative Exam Narrative: GEN: well nourished, well appearing male, alert and oriented x [default value], patient appears to be in mild distress. HEENT: Atraumatic, pupils are equal round reactive to light, extraocular movements are intact, nares are clear, there is no conjunctival pallor. Throat is clear without any exudates, erythema, tonsillar enlargement or uvular deviation HEART: Regular rate and rhythm without murmur, clicks, rubs. No edema bilateral lower extremity LUNGS:Lungs clear to auscultation, no wheezes, rales, crackles, chest moves symmetrically ABD:bowel sounds normal, soft, non-tender, no guarding, rebound, rigidity, no masses noted, no hepatosplenomegaly MSCL: Non-tender, full range of motion NEURO:CN 2-12 intact, sensation normal SKIN: Patient has multiple small areas of skin ulceration just through the superficial layer particularly on bilateral hands and forearms, posterior neck and very upper thoracic back. Patient does not have any changes on his torso otherwise. He has not 1 or 2 small spots on his ankles but none in his legs. There was no abscess appreciated there some scant areas of erythema surrounding but no drainage there is no subcutaneous tissue exposed for any of the areas. Initial Vital Signs Initial Vital Signs: Vital Signs Temperature 97.3 F L 04/22/25 15:05 Pulse Rate 93 H 04/22/25 15:05 Respiratory Rate 17 04/22/25 15:05 Blood Pressure 139/93 H 04/22/25 15:05 Pulse Oximetry 97 04/22/25 15:05 Oxygen Delivery Method Room Air 04/22/25 15:05 Course Orders Ordered: Discontinued Medications Doxycycline Hyclate (Doxycycline Hyclate 100 Mg Tablet) 100 mg PO NOW ONE Stop: 04/22/25 19:30 Last Admin: 04/22/25 19:36 Dose: 100 mg Documented By: BELL Vital Signs Vital signs: Vital Signs - 8 hr 04/22/25 18:09 04/22/25 18:09 04/22/25 19:40 Temperature 97.7 F Pulse Rate 96 H 85 Respiratory Rate 16 14 Blood Pressure 144/72 H 137/70 Pulse Oximetry 97 98 Oxygen Delivery Method Room Air MDM - Skin/Abscess/Foreign Bdy MDM Narrative Medical decision making narrative: 34-year-old male multiple areas of ulceration that appear to be slightly infected. Patient has a history of substance abuse, no abscesses. Discharge Plan Departure Patient Disposition: Home Clinical Impression: Skin infection Activity Restrictions/Additional Instructions: Please follow up for recheck if your symptoms are not improving. Take oral antibiotics until completed. You can use topical mupirocin to the affected areas as well. Use this twice daily. Prescription sent to [facility] in [place]. Please return for fevers, worsening infection, any abscess or fluid collections, chest pain or shortness of breath, vomiting, any other new or concerning changes. Prescriptions: New doxycycline hyclate 100 mg tablet 100 mg PO BID Qty: 20 0RF mupirocin 2 % ointment 1 applic topical BID Qty: 22 2RF No Action mupirocin 2 % ointment 1 applic topical TID Qty: 44 0RF mupirocin 2 % ointment 1 applic topical TID Qty: 22 3RF doxycycline hyclate 100 mg capsule 100 mg PO BID Qty: 20 0RF mupirocin 2 % ointment 1 applic topical TID Qty: 22 0RF albuterol sulfate 90 mcg/actuation HFA aerosol inhaler 2 puff inhalation Q4-6H PRN (Reason: shortness of breath or wheezing) Qty: 6.7 0RF prednisone 10 mg tablets,dose pack See Rx Instructions .ROUTE .COMPLEX Qty: 21 0RF Rx Instructions: 6 tabs p.o. x1 day, then 5 tabs p.o. x1 day, then 4 tablets p.o. x1 day, then 3 tabs p.o. x1 day, then 2 tabs p.o. x1 day, then 1 tab p.o. x1 day doxycycline hyclate 100 mg tablet 100 mg PO BID Qty: 20 0RF Referrals: Miscellaneous,Doctor, [Primary Care Provider, Medical] Stand Alone Forms: Patient Portal/API
[2025-04-22] MEDS: DOXYCYCLINE HYCLATE 100 MG TABLET PO (19:36)
[2025-04-22 19:40] VITALS: BP 137/70; PULSE 85; RESP 14; O2SAT 98
== END 2025-04-22 19:41 | disposition home or self-care (01) ==
PROVIDERS: Emergency Provider Emergency Medicine
DX: L08.9 Local infection of the skin and subcutaneous tissue, unspecified (principal)
CPT/HCPCS: 99283